=== PATIENT | male | born 1940 | race Caucasian/White ===

== ENCOUNTER 2018-09-14 09:22 | Inpatient (IN) | payer MEDICARE, OTHER ==
[2018-09-14] MEDS ORDERED: Bisacodyl SUPP* 10 MG SUPP PR PRN (11:01)
[2018-09-14] MEDS ORDERED: Magnesium Hydroxide LIQ* 30 ML UDC PO PRN (11:01)
[2018-09-14] MEDS ORDERED: Al Hydrox/Mg Hydrox/Simet LIQ* 30 ML UDC PO PRN (11:01)
[2018-09-14] MEDS ORDERED: Torsemide TAB* 20 MG PO PRN (11:15)
[2018-09-14] MEDS ORDERED: oxyCODONE/Acetamin 5/325 MG* TAB PO PRN (11:17)
[2018-09-14] MEDS: Polyethylene Glycol 3350* 17 GM PACKET PO SCH (12:17)
--- NOTE | 2018-09-14 13:03 | HP ---
CC: Dr. Hooper; Dr. Padilla; Dr. Gastelum REHABILITATION ADMISSION: DATE OF ADMISSION: 09/14/18. PRIMARY CARE PROVIDER: Dr. Hooper. ORTHOPEDIC SURGEON: Dr. Padilla. DIRECT SUPPORT WORKER: Dr. Gastelum. REASON FOR ADMISSION: Right ankle fracture. HISTORY OF PRESENT ILLNESS: This is a 77-year-old man with morbid obesity, who was admitted on 09/11/18 after fracturing his right ankle. He was brushing snow off his walkway to his truck as well as off his truck. He slipped and got his foot stuck between the runner board of his truck and wheel and fell in the opposite direction. He was brought in by ambulance to [facility]. CT revealed a lateral subluxation with posterior malleolus avulsion. X-ray showed an oblique fracture in the posterior fibula. He was seen by Dr. Crenshaw in the emergency room where the subluxation was reduced. Because of significant cardiac history of atrial fibrillation, pacemaker, cardiomyopathy and ventricular ectopy, he was admitted for a cardiology consultation in preparation for operative intervention. Cardiology recommended increasing his metoprolol to 50 mg b.i.d. He had pending an electrophysiology consult with Dr. Caldera at [facility] on 09/17/18,but that has been deferred in light of this injury. His Xarelto was stopped and he was put on a heparin drip in preparation for surgery. He was taken to the OR by Dr. Padilla on 09/12/18 for right distal tibia-fibula syndesmosis ORIF with closed treatment of right proximal fibula fracture. He is in a cast and is nonweightbearing for at least 8 weeks with the plan to follow up with Dr. Padilla in 2 weeks. Of note, the cardiology nurse practitioner decreased his metoprolol XL to 37.5 mg qam yesterday for unclear reasons. His blood pressure appears to remain stable. There are some documented bradycardia episodes, but he has a pacemaker in place. Prior to admission, he was independent with mobility and ADLs without using any assistive devices. With Physical Therapy, he has required contact guard assistance with bed mobility, transferring, and ambulation up to 2 feet with 2 assist. With Occupational Therapy, he required 2 maximum amount of assistance for lower dressing and 2 total assistance for toileting. PAST MEDICAL HISTORY: 1. Atrial fibrillation and flutter. 2. Tachybrady syndrome with pacemaker. 3. Ventricular ectopy, pending electrophysiology consult in [place] 4. Obstructive sleep apnea with CPAP that he does not use. 5. Cardiomyopathy and CHF with ejection fraction of 40% to 45%. 6. Tremor. 7. Depression. 8. Anxiety. 9. Hard of hearing with cochlear implants. 10. Abdominal cyst, status post multiple surgeries. 11. Benign prostatic hypertrophy. 12. Transthoracic ascending aortic aneurysm. 13. Hypertension. 14. Diabetes mellitus, diet controlled. 15. Obesity. MEDICATIONS: Currently: 1. Toprol-XL 37.5 mg daily. 2. Xarelto 20 mg daily. 3. Lipitor 5 mg q.h.s. 4. Citalopram 20 mg daily. 5. Clonazepam 1.5 mg q.a.m. and 1 mg q.p.m. 6. Finasteride 5 mg q.a.m. 7. Lisinopril 5 mg q.a.m. 8. Tamsulosin 0.4 mg q.a.m. 9. Torsemide 10 mg daily p.r.n. 10. Tylenol p.r.n. 11. Colace 100 mg t.i.d. p.r.n. 12. Percocet p.r.n., which he has not used. ALLERGIES: No known drug allergies. FAMILY HISTORY: Significant for father with asthma. SOCIAL HISTORY: He lives with his , Rosaura Saunders in [place]. Rosaura Saunders is his healthcare proxy, her numbers are [phone] and her cell is [phone]. He is a retired painter hand. He has a [id number] history of smoking and quit several years ago. No alcohol. Their home is a trailer. There is one level and 4 steps to enter. His is able to offer him some assistance with emptying a commode, wiping him, and assisting with sponge bathes. She cannot be physical assistance however to lift him. REVIEW OF SYSTEMS: See history of present illness and past medical history. He has been constipated since admission. The remainder of a 13-system review was completed. No other significant findings. PHYSICAL EXAMINATION GENERAL: Well developed, well nourished, overweight, appearing stated age. Mental status: No acute distress. Alert and oriented x3. VITAL SIGNS: Temperature 97.8, heart rate 76, respirations 16, oxygenation saturation 100% on room air, blood pressure 118/64. HEENT: Normocephalic, atraumatic. Oropharynx clear with upper and lower dentures. His lower denture is missing one of the front middle teeth. LUNGS: Clear to auscultation bilaterally. HEART: Irregularly irregular. ABDOMEN: Active bowel sounds. Soft, nontender, nondistended. EXTREMITIES: His right lower extremity is in a cast. There is no clubbing, cyanosis, or edema of the left lower extremity. No edema of the right toes or discoloration. He has 2+ peripheral pulses of the left leg. NEUROLOGIC: Cranial nerves II through XII are intact. Upper and lower extremity motor 5/5 bilaterally with normal sensation with limited testing of the right ankle due to his cast. MUSCULOSKELETAL: He has functional range of motion of all of his major joints with once again limited testing of the right ankle. DIAGNOSTIC STUDIES/LAB DATA: On 09/12/18, white blood cells 7.2, hemoglobin 13.4, hematocrit 40, platelet counts 139. Sodium 137, potassium 4.5, chloride 103, carbon dioxide 29, BUN 23, creatinine 0.84, glucose ranged from 85 to 118. IMPRESSION: A 77-year-old man who is status post right ankle fracture ORIF, who is nonweightbearing for at least 8 weeks. He will be admitted to [facility], so he can return to living with his with some assistance. PLAN: 1. Right ankle fracture. Continue nonweightbearing in his current cast. He is to follow up with Dr. Padilla in 2 weeks. I will order Tylenol for pain control and 1 Percocet as needed for pain control, although he has not used it to date. 2. Cardiac arrhythmia with history of paroxysmal atrial fibrillation, ventral ectopy, tachybrady syndrome with pacemaker. I spoke to Dr. Jonas about the dosing changes in metoprolol. He was familiar with this patient. He recommended keeping him on metoprolol 50 mg b.i.d. since he has the pacemaker in place to prevent bradycardia as long as it is tolerated by his blood pressure. He will need to have the electrophysiology consultation rescheduled which his has already initiated. 3. Hypertension. Continue with metoprolol and lisinopril. 4. DVT prophylaxis. He is already on Xarelto for anticoagulation for his cardiac arrhythmia. 5. Diabetes mellitus diet-controlled. Consistent carbohydrate diet. I have not ordered any routine fingersticks or sliding scale insulin as he appears to have stayed below typical ranges where one would receive insulin during his acute stay. 6. Cardiomyopathy and CHF. Torsemide as needed. 7. Constipation. Bowel meds will be ordered as well as MiraLAX. 8. Impaired mobility. He will be seen by Physical Therapy for bed mobility, transfer training, gait training, and stair training using a rolling walker and maintaining his nonweightbearing status. He is likely to need a ramp to get into his home. 9. Impaired self-care. He will be seen by Occupational Therapy for ADL training and equipment evaluation. His is likely to require family training prior to discharge. 10. Advance directives. He is a full code. His Rosaura Saunders is his healthcare proxy if he cannot make decisions for himself. Her numbers are [phone]. ESTIMATED LENGTH OF STAY: Two weeks. He will be discussed in the interdisciplinary plan of care meeting. [id number]/CPS #: [id number] CLAUDIO
[2018-09-14] MEDS: Rivaroxaban TAB(*) 20 MG TAB PO SCH (16:20)
[2018-09-14] MEDS: Atorvastatin* 10 MG TAB PO SCH (17:57)
[2018-09-14] MEDS: Senna TAB PO SCH (21:30)
[2018-09-14] MEDS: clonazePAM TAB(*) 1 MG PO SCH (21:30)
[2018-09-14] MEDS: Docusate CAP* 100 MG PO SCH (21:30)
[2018-09-14] MEDS: Metoprolol Succinate XL TAB* 25 MG PO SCH (21:30)
[2018-09-15] MEDS: Acetaminophen TAB* 325 MG PO PRN (04:42)
[2018-09-15 05:13] LABS: ABS Basophils 0.1 10^3/ul (0-0.2); ABS Eosinophils 0.1 10^3/ul (0-0.6); ABS Lymphocytes 1.8 10^3/ul (1.0-4.8); ABS Monocytes 0.9 10^3/ul (0-0.8); ABS Neutrophils 4.3 10^3/ul (1.5-7.7); ABS Nucleated RBC 0 10^3/ul; Eosinophil % 1.4 %; Hematocrit 39 % (42-52); Hemoglobin 13.3 g/dl (14.0-18.0); Lymphocyte % 24.8 %; Mean Corpuscular HGB Conc 34 g/dl (31-36); Mean Corpuscular Hemoglobin 33 pg (27-31); Mean Corpuscular Volume 98 fL (80-94); Nucleated Red Blood Cells % 0; Platelet Count 165 10^3/ul (150-450); Red Blood Count 4.04 10^6/ul (4.00-5.40); Red Cell Distribution Width 13 % (10.5-15); White Blood Count 7.1 10^3/ul (3.5-10.8)
[2018-09-15 05:30] LABS: Albumin 3.2 g/dL (3.2-5.2); Albumin/Globulin Ratio 1.2 (1-3); BUN/Creatinine Ratio 23.2 (8-20); Calcium 9.2 mg/dL (8.6-10.3); EGFR African American 110.8 (>60); EGFR Non-African American 91.6 (>60); Globulin 2.6 g/dL (2-4); Potassium 4.8 mmol/L (3.5-5.0); Total Bilirubin 0.7 mg/dL (0.2-1.0); Total Protein 5.8 g/dL (6.4-8.9)
--- NOTE | 2018-09-15 08:23 | PN ---
Progress Note Date of Service: 09/15/18 Note: DANIEL MOHAN was visited. Nursing and therapy notes read and reviewed. No BM yet. No chest pain, shortness of breath or abdominal pain. He did use some tylenol last night for discomfort which helped. Current Medications: Active Medications Generic Name Dose Route Start Last Admin Trade Name Freq PRN Reason Stop Dose Admin Acetaminophen 650 mg 09/14/18 11:01 09/15/18 04:42 Tylenol Tab* PO 650 mg Q4H PRN Administration FEVER > 101 Al Hydrox/Mg Hydrox/Simethicone 30 ml 09/14/18 11:01 Maalox Plus* PO Q6H PRN INDIGESTION Atorvastatin Calcium 5 mg 09/14/18 18:00 09/14/18 17:57 Lipitor* PO 5 mg 1800 TIMMY Administration Bisacodyl 10 mg 09/14/18 11:01 Dulcolax Supp* [place] DAILY PRN CONSTIPATION Citalopram Hydrobromide 20 mg 09/15/18 09:00 Celexa Tab* PO DAILY TIMMY Clonazepam 0.5 mg 09/15/18 09:00 Klonopin Tab(*) PO 0900 TIMMY Clonazepam 1 mg 09/14/18 21:00 09/14/18 21:30 Klonopin Tab(*) PO 1 mg BID TIMMY Administration Docusate Sodium 100 mg 09/14/18 21:00 09/14/18 21:30 Colace Cap* PO 100 mg BID TIMMY Administration Finasteride 5 mg 09/15/18 09:00 Proscar Tab* PO DAILY TIMMY Lisinopril 5 mg 09/15/18 09:00 Prinivil Tab* PO DAILY TIMMY Magnesium Hydroxide 30 ml 09/14/18 11:01 Milk Of Magnesia Liq* PO Q6H PRN CONSTIPATION Metoprolol Succinate 50 mg 09/14/18 21:00 09/14/18 21:30 Toprol Xl Tab* PO 50 mg BID TIMMY Administration Oxycodone/Acetaminophen 1 tab 09/14/18 11:17 Percocet 5/325 Tab* PO Q4H PRN Pain not relieved by tylenol Polyethylene Glycol/Electrolytes 17 gm 09/14/18 12:00 09/14/18 12:17 Miralax* PO 17 gm DAILY TIMMY Administration Rivaroxaban 20 mg 09/14/18 16:00 09/14/18 16:20 Xarelto(*) PO 20 mg 1600 TIMMY Administration Senna 2 tab 09/14/18 21:00 09/14/18 21:30 Senokot Tab* PO 2 tab BEDTIME TIMMY Administration Tamsulosin HCl 0.4 mg 09/15/18 09:00 Flomax Cap* PO DAILY TIMMY Torsemide 10 mg 09/14/18 11:15 Demadex* PO DAILY PRN edema Vital Signs: Vital Signs Temp Pulse Resp BP Pulse Ox 99.3 F 78 18 111/58 97 09/15/18 05:03 09/15/18 05:03 09/15/18 05:03 09/15/18 05:03 09/15/18 05:03 Lab Results: Laboratory Results - last 24 hr 09/15/18 09/15/18 04:56 04:56 WBC 7.1 RBC 4.04 Hgb 13.3 L Hct 39 L MCV 98 H MCH 33 H MCHC 34 RDW 13 Plt Count 165 MPV 8.0 Neut % (Auto) 60.8 Lymph % (Auto) 24.8 Cedar % (Auto) 12.3 Eos % (Auto) 1.4 Baso % (Auto) 0.7 Absolute Neuts (auto) 4.3 Absolute Lymphs (auto) 1.8 Absolute Monos (auto) 0.9 H Absolute Eos (auto) 0.1 Absolute Basos (auto) 0.1 Absolute Nucleated RBC 0 Nucleated RBC % 0 Sodium 139 Potassium 4.8 Chloride 103 Carbon Dioxide 32 Anion Gap 4 BUN 19 Creatinine 0.82 Est GFR ( Amer) 110.8 Est GFR (Non-Af Amer) 91.6 BUN/Creatinine Ratio 23.2 H Glucose 130 H Calcium 9.2 Total Bilirubin 0.70 AST 17 ALT 8 Alkaline Phosphatase 47 Total Protein 5.8 L Albumin 3.2 Globulin 2.6 Albumin/Globulin Ratio 1.2 Exam: GEN: no acute distress. alert and appropriate LUNGS: clear to auscultation bilaterally. CV: regular rate and rhythm (has h/o P.Afib) ABD: + bowel sounds, soft, non-tender, non-distended EXT: right leg casted. <2sec capillary refill. Left leg no edema and 2+ pedal pulses. NEURO: LE motor 5/5 BLE with limited testing of right ankle due to cast. Normal sensation in BLE. Assessment/Plan: 77yo man s/p ORIF of right ankle fracture #Right ankle fracture: s/p ORIF and casted. f/u Dr. Padilla 2 weeks post-op ( around 09/26). NWB RLE. PT/OT. #Cardiac: P.Afib/flutter, tachy/trisha syndrome s/p pacemaker, ventricular ectopy , cardiomyopathy/CHF. Continue metoprolol 50mg bid and Xarelto. Torsemide prn. Patient will reschedule cardiac EP consult in [place] after recovered from ankle. f/u Dr. Gastelum. #Hypertension: metoprolol and lisinopril. #DVT ppx: Xarelto #Diabetes mellitus diet controlled: consistent carbohydrate diet. No FS or coverage. f/u with PCP. #Constipation: bowel meds. Miralax today. #Advanced directives: full code. is HCP. #Estimated LOS: IPOC on Monday. 09/15/18 08:18
[2018-09-15] MEDS ORDERED: Metoprolol Succinate XL TAB* 25 MG PO SCH (09:00)
[2018-09-15] MEDS: Polyethylene Glycol 3350* 17 GM PACKET PO SCH (09:52)
[2018-09-15] MEDS: Tamsulosin CAP* 0.4 MG PO SCH (09:53)
[2018-09-15] MEDS: Lisinopril TAB* 5 MG PO SCH (09:53)
[2018-09-15] MEDS: clonazePAM TAB(*) 0.5 MG PO SCH (09:54)
[2018-09-15] MEDS: Docusate CAP* 100 MG PO SCH ×2 (09:54→20:11)
[2018-09-15] MEDS: clonazePAM TAB(*) 1 MG PO SCH ×2 (09:54→20:09)
[2018-09-15] MEDS: Metoprolol Succinate XL TAB* 25 MG PO SCH ×2 (09:55→20:09)
[2018-09-15] MEDS: Citalopram TAB* 20 MG PO SCH (09:55)
[2018-09-15] MEDS: Finasteride TAB* 5 MG PO SCH (09:56)
[2018-09-15] MEDS: Rivaroxaban TAB(*) 20 MG TAB PO SCH (16:24)
[2018-09-15] MEDS: Atorvastatin* 10 MG TAB PO SCH (17:30)
[2018-09-15] MEDS: Senna TAB PO SCH (20:11)
[2018-09-16] MEDS: Polyethylene Glycol 3350* 17 GM PACKET PO SCH (08:39)
[2018-09-16] MEDS: clonazePAM TAB(*) 1 MG PO SCH ×2 (08:40→20:41)
[2018-09-16] MEDS: Docusate CAP* 100 MG PO SCH ×2 (08:40→20:45)
[2018-09-16] MEDS: Citalopram TAB* 20 MG PO SCH (08:41)
[2018-09-16] MEDS: Tamsulosin CAP* 0.4 MG PO SCH (08:41)
[2018-09-16] MEDS: clonazePAM TAB(*) 0.5 MG PO SCH (08:41)
[2018-09-16] MEDS: Lisinopril TAB* 5 MG PO SCH (08:41)
[2018-09-16] MEDS: Metoprolol Succinate XL TAB* 25 MG PO SCH ×2 (08:42→20:41)
[2018-09-16] MEDS: Finasteride TAB* 5 MG PO SCH (08:43)
[2018-09-16] MEDS ORDERED: Polyethylene Glycol 3350* 17 GM PACKET PO PRN (09:21)
--- NOTE | 2018-09-16 09:21 | PN ---
Progress Note Date of Service: 09/16/18 Note: DANIEL MOHAN was visited. Nursing and therapy notes read and reviewed. No chest pain, shortness of breath or abdominal pain. Using tylenol for pain prn, but not needing much. Current Medications: Active Medications Generic Name Dose Route Start Last Admin Trade Name Freq PRN Reason Stop Dose Admin Acetaminophen 650 mg 09/14/18 11:01 09/15/18 04:42 Tylenol Tab* PO 650 mg Q4H PRN Administration FEVER > 101 Al Hydrox/Mg Hydrox/Simethicone 30 ml 09/14/18 11:01 Maalox Plus* PO Q6H PRN INDIGESTION Atorvastatin Calcium 5 mg 09/14/18 18:00 09/15/18 17:30 Lipitor* PO 5 mg 1800 TIMMY Administration Bisacodyl 10 mg 09/14/18 11:01 Dulcolax Supp* [place] DAILY PRN CONSTIPATION Citalopram Hydrobromide 20 mg 09/15/18 09:00 09/16/18 08:41 Celexa Tab* PO 20 mg DAILY TIMMY Administration Clonazepam 0.5 mg 09/15/18 09:00 09/16/18 08:41 Klonopin Tab(*) PO 0.5 mg 0900 TIMMY Administration Clonazepam 1 mg 09/14/18 21:00 09/16/18 08:40 Klonopin Tab(*) PO 1 mg BID TIMMY Administration Docusate Sodium 100 mg 09/14/18 21:00 09/16/18 08:40 Colace Cap* PO 100 mg BID TIMMY Administration Finasteride 5 mg 09/15/18 09:00 09/16/18 08:43 Proscar Tab* PO 5 mg DAILY TIMMY Administration Lisinopril 5 mg 09/15/18 09:00 09/16/18 08:41 Prinivil Tab* PO 5 mg DAILY TIMMY Administration Magnesium Hydroxide 30 ml 09/14/18 11:01 Milk Of Magnesia Liq* PO Q6H PRN CONSTIPATION Metoprolol Succinate 50 mg 09/14/18 21:00 09/16/18 08:42 Toprol Xl Tab* PO 50 mg BID TIMMY Administration Oxycodone/Acetaminophen 1 tab 09/14/18 11:17 Percocet 5/325 Tab* PO Q4H PRN Pain not relieved by tylenol Polyethylene Glycol/Electrolytes 17 gm 09/14/18 12:00 09/16/18 08:39 Miralax* PO Not Given DAILY TIMMY Rivaroxaban 20 mg 09/14/18 16:00 09/15/18 16:24 Xarelto(*) PO 20 mg 1600 TIMMY Administration Senna 2 tab 09/14/18 21:00 09/15/18 20:11 Senokot Tab* PO Not Given BEDTIME TIMMY Tamsulosin HCl 0.4 mg 09/15/18 09:00 09/16/18 08:41 Flomax Cap* PO 0.4 mg DAILY TIMMY Administration Torsemide 10 mg 09/14/18 11:15 Demadex* PO DAILY PRN edema Vital Signs: Vital Signs Temp Pulse Resp BP Pulse Ox 99.0 F 76 18 125/65 96 09/16/18 06:15 09/16/18 06:15 09/16/18 08:41 09/16/18 06:15 09/16/18 06:15 Exam: GEN: no acute distress. alert and appropriate LUNGS: clear to auscultation bilaterally. CV: irregular rate and rhythm (has h/o P.Afib and ventricular ectopy) ABD: + bowel sounds, soft, non-tender, non-distended EXT: right leg casted. <2sec capillary refill. Left leg no edema and 2+ pedal pulses. NEURO: LE motor 5/5 BLE with limited testing of right ankle due to cast. Normal sensation in BLE. Assessment/Plan: 77yo man s/p ORIF of right ankle fracture #Right ankle fracture: s/p ORIF and casted. f/u Dr. Padilla 2 weeks post-op ( around 09/26). NWB RLE. PT/OT. #Cardiac: P.Afib/flutter, tachy/trisha syndrome s/p pacemaker, ventricular ectopy , cardiomyopathy/CHF. Continue metoprolol 50mg bid and Xarelto. Torsemide prn. Patient will reschedule cardiac EP consult in [place] after recovered from ankle. f/u Dr. Gastelum. #Hypertension: metoprolol and lisinopril. #DVT ppx: Xarelto #Diabetes mellitus diet controlled: consistent carbohydrate diet. No FS or coverage. f/u with PCP. #Constipation: bowel meds. Miralax prn. #Advanced directives: full code. is HCP. #Estimated LOS: IPOC on Monday. 09/16/18 09:18
[2018-09-16] MEDS: Rivaroxaban TAB(*) 20 MG TAB PO SCH (16:05)
[2018-09-16] MEDS: Atorvastatin* 10 MG TAB PO SCH (18:24)
[2018-09-16] MEDS: Acetaminophen TAB* 325 MG PO PRN (18:26)
[2018-09-16] MEDS: Senna TAB PO SCH (20:46)
[2018-09-17] MEDS: clonazePAM TAB(*) 0.5 MG PO SCH (09:22)
[2018-09-17] MEDS: clonazePAM TAB(*) 1 MG PO SCH ×2 (09:22→21:11)
[2018-09-17] MEDS: Metoprolol Succinate XL TAB* 25 MG PO SCH ×2 (09:22→21:12)
[2018-09-17] MEDS: Lisinopril TAB* 5 MG PO SCH (09:22)
[2018-09-17] MEDS: Tamsulosin CAP* 0.4 MG PO SCH (09:22)
[2018-09-17] MEDS: Docusate CAP* 100 MG PO SCH ×2 (09:22→21:12)
[2018-09-17] MEDS: Finasteride TAB* 5 MG PO SCH (09:26)
[2018-09-17] MEDS: Citalopram TAB* 20 MG PO SCH (09:27)
--- NOTE | 2018-09-17 12:43 | PMRUTEAM ---
PMRU: Team Meeting Current Status: Nursing: Current Status Skin Deviations [Right Ankle] Incision Skin Deviation Description [ cast in place Right Ankle] Physical Therapy: Current Status Bed Mobility Assistance Independent Transfer Mobility Assistance Min Assist Transfer/Bed Mobility Rolling Walker Recommended Devices Ambulation Assistance Min Assist,2 or More Person Assist Ambulation Assistive Devices Rolling Walker Number of Feet Patient 25 Ambulated Stairs Assistance Mod Assist Stairs Recommended Devices Two Rails Number of Stairs 4 Manual Wheelchair Control/ Bilateral UE's Technique Wheelchair Propulsion Ability Standby Assistance Wheelchair Distance (ft) 2x150 Objective Comments pt able to self propel w/c over even surfaces with cuing instruction for how to turn w/c and apply brakes and leg rests. Occupational Therapy: Current Status Upper Body Dressing Min Assist Lower Body Dressing Max Asst Bathing Min Assist Toileting Mod Assist,2 Person Assist Toilet Transfer Min Assist,2 Person Assist Eating Independent Rec Therapy: Current Status Summary of Assessment and Pt. was lounging in his recliner throughout Clinical Impression assessment. Pt. was open to conversation - responsive, appropriate, talkative. Pt.'s was visiting and was active in discussion about leisure. Pt. reports he enjoys his life. Treatment Goals Pt. will engage in leisure while on the unit. Treatment Plan Provide RT services and encourage participation. Social Work: Current Status Discharge Plan return home with home care svs and family support Potential for Family Training pt's is involved and attentive Anticipated Discharge Home Destination Discharge With home care svs and family support Goals: Physical Therapy: Updated Goals Transfer/Bed Mobility Rolling Walker Recommended Devices Occupational Therapy: Initial Goals Goals to be Completed in (Days 14-21 ) Upper Body Bathing Routine Supervision/Set Up Lower Body Bathing Routine Minimal Contact Assist Upper Body Dressing Routine Supervision/Set Up Lower Body Dressing Routine Minimal Contact Assist Toilet Hygeine and Clothing Minimal Contact Assist Management Routine Toilet Transfer Routine Supervision/Set Up Functional Transfers for ADL Supervision/Set Up Grooming Routine Supervision/Set Up Feeding Routine Independent Social Work: Goals Discharge Plan return home with home care svs and family support Potential for Family Training pt's is involved and attentive Anticipated Discharge Home Destination Discharge With home care svs and family support Care Plan: Care Plan ADL's - Improve/Maintain Start: 09/15/18 09:40 Freq: DAILY Status: Active Target: Protocol: Activity Type Activity Date Activity User E-Sign Co-Sign Detail Recorded Client Recorded Date Recorded By Document 09/15/18 09:40 [id number] 09/15/18 09:41 [id number] 09/15/18 09:40 PMRU Outcome: ADL's/ADL Transfers Orders/Interventions Occupational Therapy Evaluation & Treatment Communication Tool in Patient Room Patient to receive OT 5x/wk for 60-120 Therex min/day Self Care Management Group Therapy UE/LE ADL's with Assist Yes: min A LB ADLs, set-up UB ADLs ADL Transfers with Assist Yes: S Toileting: Transfers,Clothing Management Yes: min A ,Hygeine w/Assist Light Kitchen/Laundry w/Assist No Progression Toward Outcome/Goals Progressing Outcome/Goals Met Pt making steady gains with standing endurance, standing balance and transfers. 1A with therapy but would recommend 2A with nsg. RN updated on progress. Cardiovascular- Improve/Maintain Start: 09/15/18 12:32 Freq: QSHIFT Status: Active Target: Protocol: Activity Type Activity Date Activity User E-Sign Co-Sign Detail Recorded Client Recorded Date Recorded By Document 09/17/18 11:59 [id number] 09/17/18 11:59 [id number] 09/17/18 11:59 PMRU Outcome: Cardiovascular Vital Signs q Shift for 48hrs Then BID Yes Current Cardiovascular Outcome/Goal Maintain/ Achieve Baseline HR, BP , Perfusion Progression Toward Outcome/Goal Progressing DVT Prophylaxis- Improve/Maintain Start: 09/15/18 12:32 Freq: QSHIFT Status: Active Target: Protocol: Activity Type Activity Date Activity User E-Sign Co-Sign Detail Recorded Client Recorded Date Recorded By Document 09/17/18 11:59 [id number] 09/17/18 11:59 [id number] 09/17/18 11:59 PMRU Outcome: DVT Prophylaxis Outcome/Goals Remains Free of DVT Progression Toward Outcome/Goals Progressing Discharge Planning - Improve/Maintain Start: 09/15/18 12:32 Freq: DAILY Status: Active Target: Protocol: Activity Type Activity Date Activity User E-Sign Co-Sign Detail Recorded Client Recorded Date Recorded By Document 09/16/18 22:15 [id number] 09/16/18 22:15 [id number] 09/16/18 22:15 PMRU Outcome: Discharge Planning Update Patient Family Yes Outcome/Goals Demonstrates Understanding of Discharge Plan Homecare Referral - See Comment Progression Toward Outcome/Goals Progressing Medication Administration Start: 09/15/18 12:32 Freq: QSHIFT Status: Active Target: Protocol: Activity Type Activity Date Activity User E-Sign Co-Sign Detail Recorded Client Recorded Date Recorded By Document 09/17/18 11:59 [id number] 09/17/18 11:59 [id number] 09/17/18 11:59 PMRU Outcome: Medication Administration Assess Patient Knowledge/Teach Med Yes Education for all Meds Outcome/Goals Patient Independent with Medication Administration at Home Progression Towards Outcome/Goals Progressing Is Patient Going Home on Lovenox? No Mobility- Improve/Maintain Start: 09/14/18 14:37 Freq: DAILY Status: Active Target: Protocol: Activity Type Activity Date Activity User E-Sign Co-Sign Detail Recorded Client Recorded Date Recorded By Document 09/14/18 14:37 [id number] 09/14/18 14:38 [id number] 09/14/18 14:37 PMRU Outcome: Mobility Physical Therapy Evaluation and Yes Treatment Activity OOB with Assistance Yes NWB Yes: RLE Device Yes Assistance Yes Patient to be seen 5x/wk for 60-120 min/ Therex day for: Mobility Training Gait Training W/C Mobility Balance Outcome/Goals Maintain/ Achieve Baseline Mobility Status Improve Mobility Status Demonstrates Proper Use of Assistive Devices Free from Complications of Immobility Bed Mobility Yes: Independent Transfers Yes: Modified independent with RW Gait x ft Yes: Modified independent 10' with RW W/C Mobility x ft Yes: Independent 150 ' BUE With HEP Yes: Independent Goal Comment Maintain NWB RLE Safety- Improve/Maintain Start: 09/15/18 12:32 Freq: QSHIFT Status: Active Target: Protocol: Activity Type Activity Date Activity User E-Sign Co-Sign Detail Recorded Client Recorded Date Recorded By Document 09/17/18 11:59 [id number] 09/17/18 11:59 [id number] 09/17/18 11:59 PMRU Outcome: Safety Outcome/Goals Remain Free of Injury or Harm Cooperates with Safety Measures for Least Restrictive Environment Prevent Falls/ Injury Progression Toward Outcome/Goals Progressing Skin- Improve/Maintain Start: 09/15/18 12:32 Freq: QSHIFT Status: Active Target: Protocol: Activity Type Activity Date Activity User E-Sign Co-Sign Detail Recorded Client Recorded Date Recorded By Document 09/17/18 11:59 [id number] 09/17/18 11:59 [id number] 09/17/18 11:59 PMRU Outcome: Skin Skin Risk Level Medium Outcome/Goals Maintain/ Improve Skin Intergrity Free from Decubitus Progression Toward Outcome/Goals Progressing Medicine Note: Length of Stay: 7 days Anticipated Discharge Destination: Home Tentative Discharge Date: 09/24/18 Discharged to: home
[2018-09-17] MEDS: Acetaminophen TAB* 325 MG PO PRN (14:09)
[2018-09-17] MEDS: Rivaroxaban TAB(*) 20 MG TAB PO SCH (16:36)
--- NOTE | 2018-09-17 17:56 | PN ---
Progress Note Date of Service: 09/17/18 Note: DANIEL MOHAN was visited. Therapy notes read and reviewed. Patient was discussed in interdisciplinary plan of care rounds. He is doing fairly well. Requires trapeze here, plans to sleep in lift chair at home. Current Medications: Active Medications Generic Name Dose Route Start Last Admin Trade Name Freq PRN Reason Stop Dose Admin Acetaminophen 650 mg 09/14/18 11:01 09/17/18 14:09 Tylenol Tab* PO 650 mg Q4H PRN Administration FEVER > 101 Al Hydrox/Mg Hydrox/Simethicone 30 ml 09/14/18 11:01 Maalox Plus* PO Q6H PRN INDIGESTION Atorvastatin Calcium 5 mg 09/14/18 18:00 09/16/18 18:24 Lipitor* PO 5 mg 1800 TIMMY Administration Bisacodyl 10 mg 09/14/18 11:01 Dulcolax Supp* [place] DAILY PRN CONSTIPATION Citalopram Hydrobromide 20 mg 09/15/18 09:00 09/17/18 09:27 Celexa Tab* PO 20 mg DAILY TIMMY Administration Clonazepam 0.5 mg 09/15/18 09:00 09/17/18 09:22 Klonopin Tab(*) PO 0.5 mg 0900 TIMMY Administration Clonazepam 1 mg 09/14/18 21:00 09/17/18 09:22 Klonopin Tab(*) PO 1 mg BID TIMMY Administration Docusate Sodium 100 mg 09/14/18 21:00 09/17/18 09:22 Colace Cap* PO 100 mg BID TIMMY Administration Finasteride 5 mg 09/15/18 09:00 09/17/18 09:26 Proscar Tab* PO 5 mg DAILY TIMMY Administration Lisinopril 5 mg 09/15/18 09:00 09/17/18 09:22 Prinivil Tab* PO 5 mg DAILY TIMMY Administration Magnesium Hydroxide 30 ml 09/14/18 11:01 Milk Of Magnesia Liq* PO Q6H PRN CONSTIPATION Metoprolol Succinate 50 mg 09/14/18 21:00 09/17/18 09:22 Toprol Xl Tab* PO 50 mg BID TIMMY Administration Oxycodone/Acetaminophen 1 tab 09/14/18 11:17 Percocet 5/325 Tab* PO Q4H PRN Pain not relieved by tylenol Polyethylene Glycol/Electrolytes 17 gm 09/16/18 09:21 Miralax* PO DAILY PRN CONSTIPATION Rivaroxaban 20 mg 09/14/18 16:00 09/17/18 16:36 Xarelto(*) PO 20 mg 1600 TIMMY Administration Senna 2 tab 09/14/18 21:00 09/16/18 20:46 Senokot Tab* PO Not Given BEDTIME TIMMY Tamsulosin HCl 0.4 mg 09/15/18 09:00 09/17/18 09:22 Flomax Cap* PO 0.4 mg DAILY TIMMY Administration Torsemide 10 mg 09/14/18 11:15 Demadex* PO DAILY PRN edema Vital Signs: Vital Signs Temp Pulse Resp BP Pulse Ox 98.0 F 78 20 112/65 97 09/17/18 16:08 09/17/18 16:08 09/17/18 16:42 09/17/18 16:08 09/17/18 16:42 Exam: GENERAL: no acute distress. alert and appropriate LUNGS: clear to auscultation bilaterally. HEART: irregular rate and rhythm (has h/o P.Afib and ventricular ectopy) ABDOMEN: + bowel sounds, soft, non-tender, non-distended EXT: right leg casted. Left leg no edema and 2+ pedal pulses. NEURO: LE motor 5/5 BLE with limited testing of right ankle due to cast. Normal sensation in BLE. Assessment/Plan: 77yo man s/p ORIF of right ankle fracture 1. Right ankle fracture: s/p ORIF and casted. f/u Dr. Padilla 2 weeks post-op ( around 09/26). NWB RLE. PT/OT. 2. P.Afib/flutter, tachy/trisha syndrome s/p pacemaker: Metoprolol 50mg bid and Xarelto. Will need cardiac EP consult in [place] after recovered from ankle. 3. CHF: Demadex PRN 4. Hypertension: metoprolol and lisinopril. 5. DVT prophylaxis: Xarelto 6. Diabetes mellitus diet controlled: consistent carbohydrate diet. No FS or coverage. f/u with PCP. 7. Constipation: bowel meds. Miralax prn. 8. Advanced directives: full code. is HCP. 09/17/18 17:57
[2018-09-17] MEDS: Atorvastatin* 10 MG TAB PO SCH (18:27)
[2018-09-17] MEDS: Senna TAB PO SCH (21:12)
[2018-09-18] MEDS: clonazePAM TAB(*) 1 MG PO SCH ×2 (08:06→20:05)
[2018-09-18] MEDS: clonazePAM TAB(*) 0.5 MG PO SCH (08:06)
[2018-09-18] MEDS: Citalopram TAB* 20 MG PO SCH (08:06)
[2018-09-18] MEDS: Docusate CAP* 100 MG PO SCH ×2 (08:07→20:04)
[2018-09-18] MEDS: Tamsulosin CAP* 0.4 MG PO SCH (08:07)
[2018-09-18] MEDS: Metoprolol Succinate XL TAB* 25 MG PO SCH ×2 (08:07→20:05)
[2018-09-18] MEDS: Lisinopril TAB* 5 MG PO SCH (08:07)
[2018-09-18] MEDS: Finasteride TAB* 5 MG PO SCH (08:07)
--- NOTE | 2018-09-18 12:39 | PMRUTEAM ---
PMRU: Team Meeting Current Status: Nursing: Current Status Skin Deviations [Right Ankle] Incision Skin Deviation Description [ soft cast/splint/CARYN wrap in place Right Ankle] Bladder Current Status Continent - uses urinal at night, pivoting to commode PRN Bowel Current Status Continent - uses urinal at night, pivoting to commode PRN Nutrition Current Status Eating at least 75% of most meals Medication Current Status Declined pain medication intervention Physical Therapy: Current Status Bed Mobility Assistance Supervision Transfer Mobility Assistance Supervision Transfer/Bed Mobility Rolling Walker Recommended Devices Ambulation Assistance Contact Guard Assist Ambulation Assistive Devices Rolling Walker Number of Feet Patient 25' Ambulated Stairs Assistance Not Tested Stairs Recommended Devices Two Rails Number of Stairs 4 Curb Not Tested Manual Wheelchair Control/ Bilateral UE's Technique Wheelchair Propulsion Ability Standby Assistance Wheelchair Distance (ft) 150' Objective Comments pt able to self propel w/c over even surfaces with cuing instruction for how to turn w/c and apply brakes and leg rests. Occupational Therapy: Current Status Upper Body Dressing Supervision Lower Body Dressing Mod Assist,Max Asst Bathing Min Assist Toileting Mod Assist Toilet Transfer Contact Guard Assist,Min Assist Shower Transfer Contact Guard Assist,Min Assist Eating Ind with Adaptive Equip Rec Therapy: Current Status Summary of Assessment and RT assessment complete. Patient has been provided Clinical Impression with activities in his room. Treatment Goals Patient will engage in recreation and leisure activities while on the unit. Treatment Plan Provide and encourage involvement in RT services. Social Work: Current Status Discharge Plan return home with home care svs and family support Potential for Family Training pt's is involved and attentive Anticipated Discharge Home Destination Discharge With home care svs and family support Nutrition: Current Status Monitoring Pt admitted to PMRU s/p R distal tibia-fibula syndesmosis ORIF. Pt eating 50-100% of most meals; has dentures, but no evidence difficulty chewing/ swallowing noted per nursing assessments. Skin intact per nursing skin assessments; Abhijeet 20 ( low risk). On appropriate consistent carb diet given hx DM; BG 130 on adm to PMRU. BMs noted 3/2, 3/4. No changes to current diet intervention to suggest; full nutrition assessment to follow per protocol. Goals: Physical Therapy: Initial Goals Bed Mobility Assistance Independent Transfer Mobility Assistance Independent Transfer/Bed Mobility Rolling Walker Recommended Devices Ambulation Independent Ambulation Recommended Devices Rolling Walker Ambulation Distance 50 Wheelchair Propulsion Ability Independent Wheelchair Distance (ft) 150 Physical Therapy: Updated Goals Transfer/Bed Mobility Rolling Walker Recommended Devices Occupational Therapy: Initial Goals Goals to be Completed in (Days 14-21 ) Upper Body Bathing Routine Supervision/Set Up Lower Body Bathing Routine Minimal Contact Assist Upper Body Dressing Routine Supervision/Set Up Lower Body Dressing Routine Minimal Contact Assist Toilet Hygeine and Clothing Minimal Contact Assist Management Routine Toilet Transfer Routine Supervision/Set Up Functional Transfers for ADL Supervision/Set Up Grooming Routine Supervision/Set Up Feeding Routine Independent Nursing: Goals Bladder Goal Independent Bowel Goal Independent Nutrition Goal 100% of all meals Medication Goal Independent Nutrition: Goals Intervention Goals 1. Intake will remain adequate to promote post-op healing 2. BG will remain adequately controlled (<180) 3. Pt will maintain regular bowel pattern without constipation (or diarrhea) Social Work: Goals Discharge Plan return home with home care svs and family support Potential for Family Training pt's is involved and attentive Anticipated Discharge Home Destination Discharge With home care svs and family support Care Plan: Care Plan ADL's - Improve/Maintain Start: 09/15/18 09:40 Freq: DAILY Status: Active Target: Protocol: Activity Type Activity Date Activity User E-Sign Co-Sign Detail Recorded Client Recorded Date Recorded By Document 09/17/18 14:26 [id number] 09/17/18 14:26 [id number] 09/17/18 14:26 PMRU Outcome: ADL's/ADL Transfers Orders/Interventions Occupational Therapy Evaluation & Treatment Communication Tool in Patient Room Patient to receive OT 5x/wk for 60-120 Therex min/day Self Care Management Group Therapy UE/LE ADL's with Assist Yes: min A LB ADLs, set-up UB ADLs ADL Transfers with Assist Yes: S Toileting: Transfers,Clothing Management Yes: min A ,Hygeine w/Assist Light Kitchen/Laundry w/Assist No Progression Toward Outcome/Goals Progressing Outcome/Goals Met Pt participated well in treatment session, continues to require v/c's in standing to fully maintain NWB status in standing with dynamic tasks, however responds well to v/c's and is making steady progress. Cardiovascular- Improve/Maintain Start: 09/15/18 12:32 Freq: QSHIFT Status: Active Target: Protocol: Activity Type Activity Date Activity User E-Sign Co-Sign Detail Recorded Client Recorded Date Recorded By Document 09/17/18 20:00 [id number] 09/17/18 23:39 [id number] 09/17/18 20:00 PMRU Outcome: Cardiovascular Vital Signs q Shift for 48hrs Then BID Yes Current Cardiovascular Outcome/Goal Maintain/ Achieve Baseline HR, BP , Perfusion Maintain/ Achieve Hemodynamic Stability Progression Toward Outcome/Goal Progressing DVT Prophylaxis- Improve/Maintain Start: 09/15/18 12:32 Freq: QSHIFT Status: Active Target: Protocol: Activity Type Activity Date Activity User E-Sign Co-Sign Detail Recorded Client Recorded Date Recorded By Document 09/17/18 20:00 [id number] 09/17/18 23:39 [id number] 09/17/18 20:00 PMRU Outcome: DVT Prophylaxis Outcome/Goals Remains Free of DVT Complies with DVT Prophylaxis /Treatment Progression Toward Outcome/Goals Progressing Discharge Planning - Improve/Maintain Start: 09/15/18 12:32 Freq: DAILY Status: Active Target: Protocol: Activity Type Activity Date Activity User E-Sign Co-Sign Detail Recorded Client Recorded Date Recorded By Document 09/18/18 01:01 [id number] 09/18/18 01:01 [id number] 09/18/18 01:01 PMRU Outcome: Discharge Planning Update Patient Family No Outcome/Goals Demonstrates Understanding of Discharge Plan Homecare Referral - See Comment Progression Toward Outcome/Goals Progressing Medication Administration Start: 09/15/18 12:32 Freq: QSHIFT Status: Active Target: Protocol: Activity Type Activity Date Activity User E-Sign Co-Sign Detail Recorded Client Recorded Date Recorded By Document 09/17/18 20:00 [id number] 09/17/18 23:39 [id number] 09/17/18 20:00 PMRU Outcome: Medication Administration Assess Patient Knowledge/Teach Med Yes Education for all Meds Outcome/Goals Patient Independent with Medication Administration at Home Progression Towards Outcome/Goals Progressing Is Patient Going Home on Lovenox? No Mobility- Improve/Maintain Start: 09/14/18 14:37 Freq: DAILY Status: Active Target: Protocol: Activity Type Activity Date Activity User E-Sign Co-Sign Detail Recorded Client Recorded Date Recorded By Document 09/14/18 14:37 [id number] 09/14/18 14:38 [id number] 09/14/18 14:37 PMRU Outcome: Mobility Physical Therapy Evaluation and Yes Treatment Activity OOB with Assistance Yes NWB Yes: RLE Device Yes Assistance Yes Patient to be seen 5x/wk for 60-120 min/ Therex day for: Mobility Training Gait Training W/C Mobility Balance Outcome/Goals Maintain/ Achieve Baseline Mobility Status Improve Mobility Status Demonstrates Proper Use of Assistive Devices Free from Complications of Immobility Bed Mobility Yes: Independent Transfers Yes: Modified independent with RW Gait x ft Yes: Modified independent 10' with RW W/C Mobility x ft Yes: Independent 150 ' BUE With HEP Yes: Independent Goal Comment Maintain NWB RLE Safety- Improve/Maintain Start: 09/15/18 12:32 Freq: QSHIFT Status: Active Target: Protocol: Activity Type Activity Date Activity User E-Sign Co-Sign Detail Recorded Client Recorded Date Recorded By Document 09/17/18 20:00 [id number] 09/17/18 23:39 [id number] 09/17/18 20:00 PMRU Outcome: Safety Outcome/Goals Remain Free of Injury or Harm Cooperates with Safety Measures for Least Restrictive Environment Prevent Falls/ Injury Progression Toward Outcome/Goals Progressing Skin- Improve/Maintain Start: 09/15/18 12:32 Freq: QSHIFT Status: Active Target: Protocol: Activity Type Activity Date Activity User E-Sign Co-Sign Detail Recorded Client Recorded Date Recorded By Document 09/17/18 20:00 [id number] 09/17/18 23:39 [id number] 09/17/18 20:00 PMRU Outcome: Skin Skin Risk Level Medium Outcome/Goals Maintain/ Improve Skin Intergrity Free from Decubitus Progression Toward Outcome/Goals Progressing Medicine Note: Length of Stay: 6 days Anticipated Discharge Destination: Home Tentative Discharge Date: 09/24/18 Discharged to: home
[2018-09-18] MEDS: Rivaroxaban TAB(*) 20 MG TAB PO SCH (15:52)
[2018-09-18] MEDS: Atorvastatin* 10 MG TAB PO SCH (17:30)
--- NOTE | 2018-09-18 19:10 | PN ---
Progress Note Date of Service: 09/18/18 Note: DANIEL MOHAN was visited. Therapy notes read and reviewed. Discussed in in terdisciplinary team rounds. He is worried about cast change. Will ask ortho Current Medications: Active Medications Generic Name Dose Route Start Last Admin Trade Name Freq PRN Reason Stop Dose Admin Acetaminophen 650 mg 09/14/18 11:01 09/17/18 14:09 Tylenol Tab* PO 650 mg Q4H PRN Administration FEVER > 101 Al Hydrox/Mg Hydrox/Simethicone 30 ml 09/14/18 11:01 Maalox Plus* PO Q6H PRN INDIGESTION Atorvastatin Calcium 5 mg 09/14/18 18:00 09/18/18 17:30 Lipitor* PO 5 mg 1800 TIMMY Administration Bisacodyl 10 mg 09/14/18 11:01 Dulcolax Supp* [place] DAILY PRN CONSTIPATION Citalopram Hydrobromide 20 mg 09/15/18 09:00 09/18/18 08:06 Celexa Tab* PO 20 mg DAILY TIMMY Administration Clonazepam 0.5 mg 09/15/18 09:00 09/18/18 08:06 Klonopin Tab(*) PO 0.5 mg 0900 TIMMY Administration Clonazepam 1 mg 09/14/18 21:00 09/18/18 08:06 Klonopin Tab(*) PO 1 mg BID TIMMY Administration Docusate Sodium 100 mg 09/14/18 21:00 09/18/18 08:07 Colace Cap* PO 100 mg BID TIMMY Administration Finasteride 5 mg 09/15/18 09:00 09/18/18 08:07 Proscar Tab* PO 5 mg DAILY TIMMY Administration Lisinopril 5 mg 09/15/18 09:00 09/18/18 08:07 Prinivil Tab* PO 5 mg DAILY TIMMY Administration Magnesium Hydroxide 30 ml 09/14/18 11:01 Milk Of Magnesia Liq* PO Q6H PRN CONSTIPATION Metoprolol Succinate 50 mg 09/14/18 21:00 09/18/18 08:07 Toprol Xl Tab* PO 50 mg BID TIMMY Administration Oxycodone/Acetaminophen 1 tab 09/14/18 11:17 Percocet 5/325 Tab* PO Q4H PRN Pain not relieved by tylenol Polyethylene Glycol/Electrolytes 17 gm 09/16/18 09:21 Miralax* PO DAILY PRN CONSTIPATION Rivaroxaban 20 mg 09/14/18 16:00 09/18/18 15:52 Xarelto(*) PO 20 mg 1600 TIMMY Administration Senna 2 tab 09/14/18 21:00 09/17/18 21:12 Senokot Tab* PO 2 tab BEDTIME TIMMY Administration Tamsulosin HCl 0.4 mg 09/15/18 09:00 09/18/18 08:07 Flomax Cap* PO 0.4 mg DAILY TIMMY Administration Torsemide 10 mg 09/14/18 11:15 Demadex* PO DAILY PRN edema Vital Signs: Vital Signs Temp Pulse Resp BP Pulse Ox 98.5 F 72 18 115/47 99 09/18/18 15:58 09/18/18 16:05 09/18/18 15:58 09/18/18 15:58 09/18/18 16:02 Exam: GENERAL: no acute distress. alert and appropriate LUNGS: clear to auscultation bilaterally. HEART: irregular rate and rhythm (has h/o P.Afib and ventricular ectopy) ABDOMEN: + bowel sounds, soft, non-tender, non-distended EXTREMITIES: right leg casted. Left leg no edema and 2+ pedal pulses. NEUROLOGIC: LE motor 5/5 BLE with limited testing of right ankle due to cast. Normal sensation in BLE. Assessment/Plan: 77yo man s/p ORIF of right ankle fracture 1. Right ankle fracture: s/p ORIF and casted. f/u Dr. Padilla 2 weeks post-op ( around 09/26). NWB RLE. PT/OT. Check with ortho about cast 2. P.Afib/flutter, tachy/trisha syndrome s/p pacemaker: Metoprolol 50mg bid and Xarelto. Will need cardiac EP consult in [place] after recovered from ankle. 3. CHF: Demadex PRN 4. Hypertension: metoprolol and lisinopril. 5. DVT prophylaxis: Xarelto 6. Diabetes mellitus diet controlled: consistent carbohydrate diet. No FS or coverage. f/u with PCP. 7. Constipation: bowel meds. Miralax prn. 8. Advanced directives: full code. is HCP. 09/18/18 19:10
[2018-09-18] MEDS: Senna TAB PO SCH (20:05)
[2018-09-19] MEDS: Tamsulosin CAP* 0.4 MG PO SCH (08:36)
[2018-09-19] MEDS: Citalopram TAB* 20 MG PO SCH (08:36)
[2018-09-19] MEDS: Docusate CAP* 100 MG PO SCH ×2 (08:36→20:17)
[2018-09-19] MEDS: Lisinopril TAB* 5 MG PO SCH (08:36)
[2018-09-19] MEDS: Finasteride TAB* 5 MG PO SCH (08:36)
[2018-09-19] MEDS: clonazePAM TAB(*) 0.5 MG PO SCH (08:37)
[2018-09-19] MEDS: clonazePAM TAB(*) 1 MG PO SCH ×2 (08:37→20:14)
[2018-09-19] MEDS: Metoprolol Succinate XL TAB* 25 MG PO SCH ×2 (08:37→20:15)
[2018-09-19] MEDS: Rivaroxaban TAB(*) 20 MG TAB PO SCH (16:32)
--- NOTE | 2018-09-19 18:17 | PN ---
Progress Note Date of Service: 09/19/18 Note: DANIEL MOHAN was visited. Therapy notes read and reviewed. I spoke with orthopedic PA about possible cast. She will check with Dr. Padilla Current Medications: Active Medications Generic Name Dose Route Start Last Admin Trade Name Freq PRN Reason Stop Dose Admin Acetaminophen 650 mg 09/14/18 11:01 09/17/18 14:09 Tylenol Tab* PO 650 mg Q4H PRN Administration FEVER > 101 Al Hydrox/Mg Hydrox/Simethicone 30 ml 09/14/18 11:01 Maalox Plus* PO Q6H PRN INDIGESTION Atorvastatin Calcium 5 mg 09/14/18 18:00 09/18/18 17:30 Lipitor* PO 5 mg 1800 TIMMY Administration Bisacodyl 10 mg 09/14/18 11:01 Dulcolax Supp* [place] DAILY PRN CONSTIPATION Citalopram Hydrobromide 20 mg 09/15/18 09:00 09/19/18 08:36 Celexa Tab* PO 20 mg DAILY TIMMY Administration Clonazepam 0.5 mg 09/15/18 09:00 09/19/18 08:37 Klonopin Tab(*) PO 0.5 mg 0900 TIMMY Administration Clonazepam 1 mg 09/14/18 21:00 09/19/18 08:37 Klonopin Tab(*) PO 1 mg BID TIMMY Administration Docusate Sodium 100 mg 09/14/18 21:00 09/19/18 08:36 Colace Cap* PO Not Given BID TIMMY Finasteride 5 mg 09/15/18 09:00 09/19/18 08:36 Proscar Tab* PO 5 mg DAILY TIMMY Administration Lisinopril 5 mg 09/15/18 09:00 09/19/18 08:36 Prinivil Tab* PO 5 mg DAILY TIMMY Administration Magnesium Hydroxide 30 ml 09/14/18 11:01 Milk Of Magnesia Liq* PO Q6H PRN CONSTIPATION Metoprolol Succinate 50 mg 09/14/18 21:00 09/19/18 08:37 Toprol Xl Tab* PO 50 mg BID TIMMY Administration Oxycodone/Acetaminophen 1 tab 09/14/18 11:17 Percocet 5/325 Tab* PO Q4H PRN Pain not relieved by tylenol Polyethylene Glycol/Electrolytes 17 gm 09/16/18 09:21 Miralax* PO DAILY PRN CONSTIPATION Rivaroxaban 20 mg 09/14/18 16:00 09/19/18 16:32 Xarelto(*) PO 20 mg 1600 TIMMY Administration Senna 2 tab 09/14/18 21:00 09/18/18 20:05 Senokot Tab* PO Not Given BEDTIME TIMMY Tamsulosin HCl 0.4 mg 09/15/18 09:00 09/19/18 08:36 Flomax Cap* PO 0.4 mg DAILY TIMMY Administration Torsemide 10 mg 09/14/18 11:15 Demadex* PO DAILY PRN edema Vital Signs: Vital Signs Temp Pulse Resp BP Pulse Ox 98.4 F 78 16 112/54 98 09/19/18 16:38 09/19/18 16:39 09/19/18 17:18 09/19/18 16:38 09/19/18 17:18 Exam: GENERAL: no acute distress. alert and appropriate LUNGS: clear to auscultation bilaterally. HEART: irregular rate and rhythm (has h/o P.Afib and ventricular ectopy) ABDOMEN: + bowel sounds, soft, non-tender, non-distended EXTREMITIES: right leg casted. Left leg no edema and 2+ pedal pulses. NEUROLOGIC: LE motor 5/5 BLE with limited testing of right ankle due to splint. Normal sensation in BLE. Assessment/Plan: 77yo man s/p ORIF of right ankle fracture 1. Right ankle fracture: s/p ORIF and casted. f/u Dr. Padilla 2 weeks post-op ( around 09/26). NWB RLE. PT/OT. Check with ortho about cast 2. P.Afib/flutter, tachy/trisha syndrome s/p pacemaker: Metoprolol 50mg bid and Xarelto. Will need cardiac EP consult in [place] after recovered from ankle. 3. CHF: Demadex PRN 4. Hypertension: metoprolol and lisinopril. 5. DVT prophylaxis: Xarelto 6. Diabetes mellitus diet controlled: consistent carbohydrate diet. No FS or coverage. f/u with PCP. 7. Constipation: bowel meds. Miralax prn. 8. Advanced directives: full code. is HCP. 09/19/18 18:17
[2018-09-19] MEDS: Atorvastatin* 10 MG TAB PO SCH (19:26)
[2018-09-19] MEDS: Senna TAB PO SCH (20:17)
[2018-09-20] MEDS: Finasteride TAB* 5 MG PO SCH (09:09)
[2018-09-20] MEDS: Lisinopril TAB* 5 MG PO SCH (09:09)
[2018-09-20] MEDS: Metoprolol Succinate XL TAB* 25 MG PO SCH ×2 (09:09→20:19)
[2018-09-20] MEDS: Citalopram TAB* 20 MG PO SCH (09:09)
[2018-09-20] MEDS: Tamsulosin CAP* 0.4 MG PO SCH (09:10)
[2018-09-20] MEDS: clonazePAM TAB(*) 1 MG PO SCH ×2 (09:10→20:19)
[2018-09-20] MEDS: clonazePAM TAB(*) 0.5 MG PO SCH (09:10)
[2018-09-20] MEDS: Docusate CAP* 100 MG PO SCH ×2 (09:14→20:19)
[2018-09-20] MEDS: Acetaminophen TAB* 325 MG PO PRN (15:44)
[2018-09-20] MEDS: Atorvastatin* 10 MG TAB PO SCH (17:29)
[2018-09-20] MEDS: Rivaroxaban TAB(*) 20 MG TAB PO SCH (17:30)
--- NOTE | 2018-09-20 19:25 | PN ---
Progress Note Date of Service: 09/20/18 Note: DANIEL MOHAN was visited. Therapy notes read and reviewed. I spoke with orthopedics. They will cast his ankle Monday before he leaves. He has no complaints otherwise. He had a small amount of blood when he went to urinate Current Medications: Active Medications Generic Name Dose Route Start Last Admin Trade Name Freq PRN Reason Stop Dose Admin Acetaminophen 650 mg 09/14/18 11:01 09/20/18 15:44 Tylenol Tab* PO 650 mg Q4H PRN Administration FEVER > 101 Al Hydrox/Mg Hydrox/Simethicone 30 ml 09/14/18 11:01 Maalox Plus* PO Q6H PRN INDIGESTION Atorvastatin Calcium 5 mg 09/14/18 18:00 09/20/18 17:29 Lipitor* PO 5 mg 1800 TIMMY Administration Bisacodyl 10 mg 09/14/18 11:01 Dulcolax Supp* [place] DAILY PRN CONSTIPATION Citalopram Hydrobromide 20 mg 09/15/18 09:00 09/20/18 09:09 Celexa Tab* PO 20 mg DAILY TIMMY Administration Clonazepam 0.5 mg 09/15/18 09:00 09/20/18 09:10 Klonopin Tab(*) PO 0.5 mg 0900 TIMMY Administration Clonazepam 1 mg 09/14/18 21:00 09/20/18 09:10 Klonopin Tab(*) PO 1 mg BID TIMMY Administration Docusate Sodium 100 mg 09/14/18 21:00 09/20/18 09:14 Colace Cap* PO Not Given BID TIMMY Finasteride 5 mg 09/15/18 09:00 09/20/18 09:09 Proscar Tab* PO 5 mg DAILY TIMMY Administration Lisinopril 5 mg 09/15/18 09:00 09/20/18 09:09 Prinivil Tab* PO 5 mg DAILY TIMMY Administration Magnesium Hydroxide 30 ml 09/14/18 11:01 Milk Of Magnesia Liq* PO Q6H PRN CONSTIPATION Metoprolol Succinate 50 mg 09/14/18 21:00 09/20/18 09:09 Toprol Xl Tab* PO 50 mg BID TIMMY Administration Oxycodone/Acetaminophen 1 tab 09/14/18 11:17 Percocet 5/325 Tab* PO Q4H PRN Pain not relieved by tylenol Polyethylene Glycol/Electrolytes 17 gm 09/16/18 09:21 Miralax* PO DAILY PRN CONSTIPATION Rivaroxaban 20 mg 09/14/18 16:00 09/20/18 17:30 Xarelto(*) PO 20 mg 1600 TIMMY Administration Senna 2 tab 09/14/18 21:00 09/19/18 20:17 Senokot Tab* PO Not Given BEDTIME TIMMY Tamsulosin HCl 0.4 mg 09/15/18 09:00 09/20/18 09:10 Flomax Cap* PO 0.4 mg DAILY TIMMY Administration Torsemide 10 mg 09/14/18 11:15 Demadex* PO DAILY PRN edema Vital Signs: Vital Signs Temp Pulse Resp BP Pulse Ox 98.9 F 40 16 106/49 98 09/20/18 15:55 09/20/18 15:55 09/20/18 15:51 09/20/18 15:55 09/20/18 17:44 Exam: GENERAL: no acute distress. alert and appropriate LUNGS: clear to auscultation bilaterally. HEART: irregular rate and rhythm (has h/o P.Afib and ventricular ectopy) ABDOMEN: + bowel sounds, soft, non-tender, non-distended EXTREMITIES: right leg casted. Left leg no edema and 2+ pedal pulses. NEUROLOGIC: LE motor 5/5 BLE with limited testing of right ankle due to splint. Normal sensation in BLE. Assessment/Plan: 77yo man s/p ORIF of right ankle fracture 1. Right ankle fracture: s/p ORIF and casted. f/u Dr. Padilla 2 weeks post-op ( around 09/26). NWB RLE. PT/OT. Check with ortho about cast 2. P.Afib/flutter, tachy/trisha syndrome s/p pacemaker: Metoprolol 50mg bid and Xarelto. Will need cardiac EP consult in [place] after recovered from ankle. 3. CHF: Demadex PRN 4. Hypertension: metoprolol and lisinopril. 5. DVT prophylaxis: Xarelto 6. Diabetes mellitus diet controlled: consistent carbohydrate diet. No FS or coverage. f/u with PCP. 7. Constipation: bowel meds. Miralax prn. 8. Advanced directives: full code. is HCP. 9. Hematuria: will follow. May need urology 09/20/18 19:39
[2018-09-20] MEDS: Senna TAB PO SCH (20:19)
[2018-09-21] MEDS: Citalopram TAB* 20 MG PO SCH (09:47)
[2018-09-21] MEDS: Metoprolol Succinate XL TAB* 25 MG PO SCH ×2 (09:48→20:13)
[2018-09-21] MEDS: clonazePAM TAB(*) 0.5 MG PO SCH (09:48)
[2018-09-21] MEDS: Finasteride TAB* 5 MG PO SCH (09:48)
[2018-09-21] MEDS: Tamsulosin CAP* 0.4 MG PO SCH (09:48)
[2018-09-21] MEDS: clonazePAM TAB(*) 1 MG PO SCH ×2 (09:48→20:13)
[2018-09-21] MEDS: Lisinopril TAB* 5 MG PO SCH (09:48)
[2018-09-21] MEDS: Docusate CAP* 100 MG PO SCH ×2 (09:51→20:12)
[2018-09-21] MEDS: Rivaroxaban TAB(*) 20 MG TAB PO SCH (17:19)
[2018-09-21] MEDS: Atorvastatin* 10 MG TAB PO SCH (17:19)
[2018-09-21 18:02] LABS: Urine Appearance Clear; Urine Bacteria Absent (Absent); Urine Bilirubin Negative (Negative); Urine Blood 2+ (Negative); Urine Color Yellow; Urine Glucose Negative (Negative); Urine Ketones Negative (Negative); Urine Nitrite Negative (Negative); Urine Protein Negative (Negative); Urine Red Blood Cell 3+(>10/hpf) (Absent); Urine Specific Gravity 1.024 (1.010-1.030); Urine Squamous Epithelial Cell Present (Absent); Urine Urobilinogen Positive (Negative); Urine White Blood Cell Absent (Absent)
--- NOTE | 2018-09-21 18:51 | PN ---
Progress Note Date of Service: 09/21/18 Note: DANIEL MOHAN was visited. Therapy notes read and reviewed. He had a little more heamturia. I ordered a U/A which was negative. The patient had an Ultrasound of his bladder and kidneys which did not explain his hematuria. Will need a cystoscopy as an outpatient. Will check CBC in am Current Medications: Active Medications Generic Name Dose Route Start Last Admin Trade Name Freq PRN Reason Stop Dose Admin Acetaminophen 650 mg 09/14/18 11:01 09/20/18 15:44 Tylenol Tab* PO 650 mg Q4H PRN Administration FEVER > 101 Al Hydrox/Mg Hydrox/Simethicone 30 ml 09/14/18 11:01 Maalox Plus* PO Q6H PRN INDIGESTION Atorvastatin Calcium 5 mg 09/14/18 18:00 09/21/18 17:19 Lipitor* PO 5 mg 1800 TIMMY Administration Bisacodyl 10 mg 09/14/18 11:01 Dulcolax Supp* [place] DAILY PRN CONSTIPATION Citalopram Hydrobromide 20 mg 09/15/18 09:00 09/21/18 09:47 Celexa Tab* PO 20 mg DAILY TIMMY Administration Clonazepam 0.5 mg 09/15/18 09:00 09/21/18 09:48 Klonopin Tab(*) PO 0.5 mg 0900 TIMMY Administration Clonazepam 1 mg 09/14/18 21:00 09/21/18 09:48 Klonopin Tab(*) PO 1 mg BID TIMMY Administration Docusate Sodium 100 mg 09/14/18 21:00 09/21/18 09:51 Colace Cap* PO Not Given BID TIMMY Finasteride 5 mg 09/15/18 09:00 09/21/18 09:48 Proscar Tab* PO 5 mg DAILY TIMMY Administration Lisinopril 5 mg 09/15/18 09:00 09/21/18 09:48 Prinivil Tab* PO 5 mg DAILY TIMMY Administration Magnesium Hydroxide 30 ml 09/14/18 11:01 Milk Of Magnesia Liq* PO Q6H PRN CONSTIPATION Metoprolol Succinate 50 mg 09/14/18 21:00 09/21/18 09:48 Toprol Xl Tab* PO 50 mg BID TIMMY Administration Oxycodone/Acetaminophen 1 tab 09/14/18 11:17 Percocet 5/325 Tab* PO Q4H PRN Pain not relieved by tylenol Polyethylene Glycol/Electrolytes 17 gm 09/16/18 09:21 Miralax* PO DAILY PRN CONSTIPATION Rivaroxaban 20 mg 09/14/18 16:00 09/21/18 17:19 Xarelto(*) PO 20 mg 1600 TIMMY Administration Senna 2 tab 09/14/18 21:00 09/20/18 20:19 Senokot Tab* PO 2 tab BEDTIME TIMMY Administration Tamsulosin HCl 0.4 mg 09/15/18 09:00 09/21/18 09:48 Flomax Cap* PO 0.4 mg DAILY TIMMY Administration Torsemide 10 mg 09/14/18 11:15 Demadex* PO DAILY PRN edema Vital Signs: Vital Signs Temp Pulse Resp BP Pulse Ox 98.6 F 40 24 109/50 97 09/21/18 16:17 09/21/18 16:17 09/21/18 16:17 09/21/18 16:17 09/21/18 16:17 Lab Results: Laboratory Results - last 24 hr 09/21/18 17:29 Urine Color Yellow Urine Appearance Clear Urine pH 6.0 Ur Specific [place] 1.024 Urine Protein Negative Urine Ketones Negative Urine Blood 2+ A Urine Nitrate Negative Urine Bilirubin Negative Urine Urobilinogen Positive A Ur Leukocyte Esterase Negative Urine WBC (Auto) Absent Urine RBC (Auto) 3+(>10/hpf) A Ur Squamous Epith Cells Present A Urine Bacteria Absent Urine Glucose Negative Exam: GENERAL: no acute distress. alert and appropriate LUNGS: clear to auscultation bilaterally. HEART: irregular rate and rhythm (has h/o P.Afib and ventricular ectopy) ABDOMEN: + bowel sounds, soft, non-tender, non-distended EXTREMITIES: right leg casted. Left leg no edema and 2+ pedal pulses. NEUROLOGIC: LE motor 5/5 BLE with limited testing of right ankle due to splint. Normal sensation in BLE. Assessment/Plan: 77yo man s/p ORIF of right ankle fracture 1. Right ankle fracture: s/p ORIF and casted. NWB RLE. PT/OT. Ortho will change cast Monday 2. P.Afib/flutter, tachy/trisha syndrome s/p pacemaker: Metoprolol 50mg bid and Xarelto. Will need cardiac EP consult in [place] after recovered from ankle. 3. CHF: Demadex PRN 4. Hypertension: metoprolol and lisinopril. 5. DVT prophylaxis: Xarelto 6. Diabetes mellitus diet controlled: consistent carbohydrate diet. No FS or coverage. f/u with PCP. 7. Constipation: bowel meds. Miralax prn. 8. Advanced directives: full code. is HCP. 9. Hematuria: will follow. May need urology, Ultrasound of bladder and kidneys ok. U/A negative 09/21/18 18:51
[2018-09-21] MEDS: Senna TAB PO SCH (20:12)
[2018-09-22 05:27] LABS: ABS Basophils 0 10^3/ul (0-0.2); ABS Eosinophils 0.1 10^3/ul (0-0.6); ABS Lymphocytes 1.4 10^3/ul (1.0-4.8); ABS Monocytes 0.9 10^3/ul (0-0.8); ABS Neutrophils 4.7 10^3/ul (1.5-7.7); ABS Nucleated RBC 0 10^3/ul; Eosinophil % 1.5 %; Hematocrit 38 % (42-52); Lymphocyte % 19.6 %; Mean Corpuscular HGB Conc 34 g/dl (31-36); Mean Corpuscular Hemoglobin 33 pg (27-31); Mean Corpuscular Volume 97 fL (80-94); Mean Platelet Volume 7.5 fL (7.4-10.4); Nucleated Red Blood Cells % 0; Platelet Count 172 10^3/ul (150-450); Red Blood Count 3.97 10^6/ul (4.00-5.40); Red Cell Distribution Width 13 % (10.5-15); White Blood Count 7.2 10^3/ul (3.5-10.8)
[2018-09-22 05:47] LABS: Albumin 3.2 g/dL (3.2-5.2); Albumin/Globulin Ratio 1.1 (1-3); BUN/Creatinine Ratio 24.4 (8-20); Calcium 9.1 mg/dL (8.6-10.3); EGFR African American 110.8 (>60); EGFR Non-African American 91.6 (>60); Globulin 2.8 g/dL (2-4); Potassium 4.5 mmol/L (3.5-5.0)
[2018-09-22] MEDS: Citalopram TAB* 20 MG PO SCH (09:16)
[2018-09-22] MEDS: Docusate CAP* 100 MG PO SCH ×2 (09:16→20:28)
[2018-09-22] MEDS: clonazePAM TAB(*) 0.5 MG PO SCH (09:17)
[2018-09-22] MEDS: clonazePAM TAB(*) 1 MG PO SCH ×2 (09:18→20:23)
[2018-09-22] MEDS: Finasteride TAB* 5 MG PO SCH (09:18)
[2018-09-22] MEDS: Lisinopril TAB* 5 MG PO SCH (09:18)
[2018-09-22] MEDS: Metoprolol Succinate XL TAB* 25 MG PO SCH ×2 (09:19→20:23)
[2018-09-22] MEDS: Tamsulosin CAP* 0.4 MG PO SCH (09:19)
--- NOTE | 2018-09-22 16:21 | PN ---
Progress Note Date of Service: 09/22/18 Note: DANIEL MOHAN was visited. Therapy notes read and reviewed. His hematuria has lessened a little. Otherwise, he has no complaints. Current Medications: Active Medications Generic Name Dose Route Start Last Admin Trade Name Freq PRN Reason Stop Dose Admin Acetaminophen 650 mg 09/14/18 11:01 09/20/18 15:44 Tylenol Tab* PO 650 mg Q4H PRN Administration FEVER > 101 Al Hydrox/Mg Hydrox/Simethicone 30 ml 09/14/18 11:01 Maalox Plus* PO Q6H PRN INDIGESTION Atorvastatin Calcium 5 mg 09/14/18 18:00 09/21/18 17:19 Lipitor* PO 5 mg 1800 TIMMY Administration Bisacodyl 10 mg 09/14/18 11:01 Dulcolax Supp* [place] DAILY PRN CONSTIPATION Citalopram Hydrobromide 20 mg 09/15/18 09:00 09/22/18 09:16 Celexa Tab* PO 20 mg DAILY TIMMY Administration Clonazepam 0.5 mg 09/15/18 09:00 09/22/18 09:17 Klonopin Tab(*) PO 0.5 mg 0900 TIMMY Administration Clonazepam 1 mg 09/14/18 21:00 09/22/18 09:18 Klonopin Tab(*) PO 1 mg BID TIMMY Administration Docusate Sodium 100 mg 09/14/18 21:00 09/22/18 09:16 Colace Cap* PO Not Given BID TIMMY Finasteride 5 mg 09/15/18 09:00 09/22/18 09:18 Proscar Tab* PO 5 mg DAILY TIMMY Administration Lisinopril 5 mg 09/15/18 09:00 09/22/18 09:18 Prinivil Tab* PO 5 mg DAILY TIMMY Administration Magnesium Hydroxide 30 ml 09/14/18 11:01 Milk Of Magnesia Liq* PO Q6H PRN CONSTIPATION Metoprolol Succinate 50 mg 09/14/18 21:00 09/22/18 09:19 Toprol Xl Tab* PO 50 mg BID TIMMY Administration Oxycodone/Acetaminophen 1 tab 09/14/18 11:17 Percocet 5/325 Tab* PO Q4H PRN Pain not relieved by tylenol Polyethylene Glycol/Electrolytes 17 gm 09/16/18 09:21 Miralax* PO DAILY PRN CONSTIPATION Rivaroxaban 20 mg 09/14/18 16:00 09/21/18 17:19 Xarelto(*) PO 20 mg 1600 TIMMY Administration Senna 2 tab 09/14/18 21:00 09/21/18 20:12 Senokot Tab* PO Not Given BEDTIME TIMMY Tamsulosin HCl 0.4 mg 09/15/18 09:00 09/22/18 09:19 Flomax Cap* PO 0.4 mg DAILY TIMMY Administration Torsemide 10 mg 09/14/18 11:15 Demadex* PO DAILY PRN edema Vital Signs: Vital Signs Temp Pulse Resp BP Pulse Ox 98.3 F 76 18 99/56 97 09/22/18 15:33 09/22/18 15:36 09/22/18 15:33 09/22/18 15:33 09/22/18 15:33 Lab Results: Laboratory Results - last 24 hr 09/21/18 09/22/18 09/22/18 17:29 05:21 05:21 WBC 7.2 RBC 3.97 L Hgb 13.0 L Hct 38 L MCV 97 H MCH 33 H MCHC 34 RDW 13 Plt Count 172 MPV 7.5 Neut % (Auto) 65.9 Lymph % (Auto) 19.6 [place] % (Auto) 12.5 Eos % (Auto) 1.5 Baso % (Auto) 0.5 Absolute Neuts (auto) 4.7 Absolute Lymphs (auto) 1.4 Absolute Monos (auto) 0.9 H Absolute Eos (auto) 0.1 Absolute Basos (auto) 0 Absolute Nucleated RBC 0 Nucleated RBC % 0 Sodium 137 Potassium 4.5 Chloride 103 Carbon Dioxide 31 Anion Gap 3 BUN 20 Creatinine 0.82 Est GFR ( Amer) 110.8 Est GFR (Non-Af Amer) 91.6 BUN/Creatinine Ratio 24.4 H Glucose 139 H Calcium 9.1 Total Bilirubin 1.00 AST 11 L ALT 7 Alkaline Phosphatase 49 Total Protein 6.0 L Albumin 3.2 Globulin 2.8 Albumin/Globulin Ratio 1.1 Urine Color Yellow Urine Appearance Clear Urine pH 6.0 Ur Specific [place] 1.024 Urine Protein Negative Urine Ketones Negative Urine Blood 2+ A Urine Nitrate Negative Urine Bilirubin Negative Urine Urobilinogen Positive A Ur Leukocyte Esterase Negative Urine WBC (Auto) Absent Urine RBC (Auto) 3+(>10/hpf) A Ur Squamous Epith Cells Present A Urine Bacteria Absent Urine Glucose Negative Exam: GENERAL: no acute distress. alert and appropriate LUNGS: clear to auscultation bilaterally. HEART: irregular; S1 S2 ABDOMEN: + bowel sounds, soft, non-tender, non-distended EXTREMITIES: right leg casted. Left leg no edema and 2+ pedal pulses. NEUROLOGIC: LE motor 5/5 BLE with limited testing of right ankle due to splint. Normal sensation in BLE. Assessment/Plan: 77yo man s/p ORIF of right ankle fracture 1. Right ankle fracture: s/p ORIF and casted. NWB RLE. PT/OT. Ortho will change cast Monday 2. P.Afib/flutter, tachy/trisha syndrome s/p pacemaker: Metoprolol 50mg bid and Xarelto. Will need cardiac EP consult in [place] after recovered from ankle. 3. CHF: Demadex PRN 4. Hypertension: metoprolol and lisinopril. 5. DVT prophylaxis: Xarelto 6. Diabetes mellitus diet controlled: consistent carbohydrate diet. No FS or coverage. f/u with PCP. 7. Constipation: bowel meds. Miralax prn. 8. Advanced directives: full code. is HCP. 9. Hematuria: will follow. May need urology, Ultrasound of bladder and kidneys ok. U/A negative 09/22/18 16:22
[2018-09-22] MEDS: Rivaroxaban TAB(*) 20 MG TAB PO SCH (17:24)
[2018-09-22] MEDS: Atorvastatin* 10 MG TAB PO SCH (17:24)
[2018-09-22] MEDS: Senna TAB PO SCH (20:28)
[2018-09-23] MEDS: clonazePAM TAB(*) 0.5 MG PO SCH (08:31)
[2018-09-23] MEDS: clonazePAM TAB(*) 1 MG PO SCH ×2 (08:31→20:20)
[2018-09-23] MEDS: Metoprolol Succinate XL TAB* 25 MG PO SCH ×2 (08:32→20:29)
[2018-09-23] MEDS: Docusate CAP* 100 MG PO SCH ×2 (08:32→20:20)
[2018-09-23] MEDS: Lisinopril TAB* 5 MG PO SCH (08:32)
[2018-09-23] MEDS: Finasteride TAB* 5 MG PO SCH (08:32)
[2018-09-23] MEDS: Citalopram TAB* 20 MG PO SCH (08:33)
[2018-09-23] MEDS: Tamsulosin CAP* 0.4 MG PO SCH (09:33)
--- NOTE | 2018-09-23 15:32 | PN ---
Progress Note Date of Service: 09/23/18 Note: DANIEL MOHAN was visited. Therapy notes read and reviewed. No hematuria today. Doing well. Will go home tomorrow. Current Medications: Active Medications Generic Name Dose Route Start Last Admin Trade Name Freq PRN Reason Stop Dose Admin Acetaminophen 650 mg 09/14/18 11:01 09/20/18 15:44 Tylenol Tab* PO 650 mg Q4H PRN Administration FEVER > 101 Al Hydrox/Mg Hydrox/Simethicone 30 ml 09/14/18 11:01 Maalox Plus* PO Q6H PRN INDIGESTION Atorvastatin Calcium 5 mg 09/14/18 18:00 09/22/18 17:24 Lipitor* PO 5 mg 1800 TIMMY Administration Bisacodyl 10 mg 09/14/18 11:01 Dulcolax Supp* [place] DAILY PRN CONSTIPATION Citalopram Hydrobromide 20 mg 09/15/18 09:00 09/23/18 08:33 Celexa Tab* PO 20 mg DAILY TIMMY Administration Clonazepam 0.5 mg 09/15/18 09:00 09/23/18 08:31 Klonopin Tab(*) PO 0.5 mg 0900 TIMMY Administration Clonazepam 1 mg 09/14/18 21:00 09/23/18 08:31 Klonopin Tab(*) PO 1 mg BID TIMMY Administration Docusate Sodium 100 mg 09/14/18 21:00 09/23/18 08:32 Colace Cap* PO Not Given BID TIMMY Finasteride 5 mg 09/15/18 09:00 09/23/18 08:32 Proscar Tab* PO 5 mg DAILY TIMMY Administration Lisinopril 5 mg 09/15/18 09:00 09/23/18 08:32 Prinivil Tab* PO 5 mg DAILY TIMMY Administration Magnesium Hydroxide 30 ml 09/14/18 11:01 Milk Of Magnesia Liq* PO Q6H PRN CONSTIPATION Metoprolol Succinate 50 mg 09/14/18 21:00 09/23/18 08:32 Toprol Xl Tab* PO 50 mg BID TIMMY Administration Oxycodone/Acetaminophen 1 tab 09/14/18 11:17 Percocet 5/325 Tab* PO Q4H PRN Pain not relieved by tylenol Polyethylene Glycol/Electrolytes 17 gm 09/16/18 09:21 Miralax* PO DAILY PRN CONSTIPATION Rivaroxaban 20 mg 09/14/18 16:00 09/22/18 17:24 Xarelto(*) PO 20 mg 1600 TIMMY Administration Senna 2 tab 09/14/18 21:00 09/22/18 20:28 Senokot Tab* PO Not Given BEDTIME TIMMY Tamsulosin HCl 0.4 mg 09/15/18 09:00 09/23/18 09:33 Flomax Cap* PO 0.4 mg DAILY TIMMY Administration Torsemide 10 mg 09/14/18 11:15 Demadex* PO DAILY PRN edema Vital Signs: Vital Signs Temp Pulse Resp BP Pulse Ox 97.9 F 80 18 114/57 98 09/23/18 04:27 09/23/18 04:27 09/23/18 08:31 09/23/18 04:27 09/23/18 08:00 Exam: GENERAL: no acute distress. alert and appropriate LUNGS: clear to auscultation bilaterally. HEART: irregular; S1 S2 ABDOMEN: + bowel sounds, soft, non-tender, non-distended EXTREMITIES: right leg casted. Left leg no edema and 2+ pedal pulses. NEUROLOGIC: LE motor 5/5 BLE with limited testing of right ankle due to splint. Normal sensation in BLE. Assessment/Plan: 77yo man s/p ORIF of right ankle fracture 1. Right ankle fracture: s/p ORIF and casted. NWB RLE. PT/OT. Ortho will change cast Monday 2. P.Afib/flutter, tachy/trisha syndrome s/p pacemaker: Metoprolol 50mg bid and Xarelto. Will need cardiac EP consult in [place] after recovered from ankle. 3. CHF: Demadex PRN 4. Hypertension: metoprolol and lisinopril. 5. DVT prophylaxis: Xarelto 6. Diabetes mellitus diet controlled: consistent carbohydrate diet. No FS or coverage. f/u with PCP. 7. Constipation: bowel meds. Miralax prn. 8. Advanced directives: full code. is HCP. 9. Hematuria: will follow. May need urology, Ultrasound of bladder and kidneys ok. U/A negative 09/23/18 15:33
[2018-09-23] MEDS: Rivaroxaban TAB(*) 20 MG TAB PO SCH (17:02)
[2018-09-23] MEDS: Atorvastatin* 10 MG TAB PO SCH (17:05)
[2018-09-23] MEDS: Senna TAB PO SCH (19:58)
[2018-09-24 06:46] VITALS: BP 107/54
[2018-09-24] MEDS: Citalopram TAB* 20 MG PO SCH (09:28)
[2018-09-24] MEDS: clonazePAM TAB(*) 0.5 MG PO SCH (09:29)
[2018-09-24] MEDS: clonazePAM TAB(*) 1 MG PO SCH (09:29)
[2018-09-24] MEDS: Docusate CAP* 100 MG PO SCH ×2 (09:30→09:34)
[2018-09-24] MEDS: Lisinopril TAB* 5 MG PO SCH (09:30)
[2018-09-24] MEDS: Tamsulosin CAP* 0.4 MG PO SCH (09:31)
[2018-09-24] MEDS: Metoprolol Succinate XL TAB* 25 MG PO SCH (09:32)
[2018-09-24] MEDS: Finasteride TAB* 5 MG PO SCH (09:33)
--- NOTE | 2018-09-24 12:03 | PN ---
Progress Note - Progress Note Date of Service: 09/24/18 SOAP: Subjective: []Pt seen at bedside in [facility] for cast placement. He feels well without complaint. Right ankle is not painful, he will go home today. Objective: []General: Well appearing, pleasant, NAD RLE: macarena removed, steri strips placed, incisions CDI. DP2 . Short leg cast placed. Sensation intact to light touch distally, able to wiggle toes, capillary refill less than two seconds distally. Assessment: []POD 12 sp ORIF right ankle Plan: []NWB RLE FU Dr Padilla in 3 weeks xrays today Vital Signs Temp 97.6 F 09/24/18 06:16 Pulse 76 09/24/18 06:16 Resp 18 09/24/18 09:29 BP 107/54 09/24/18 06:16 Pulse Ox 96 09/24/18 08:00 Intake & Output 09/23/18 09/24/18 09/24/18 18:59 06:59 18:59 Intake Total 840 480 Output Total 500 1125 Balance 340 -1125 480 Intake: Oral 840 480 Output: Urine 500 1125 Other: # Voids 1 1 Laboratory Last Values WBC 7.2 10^3/ul (3.5-10.8) 09/22/18 05:21 RBC 3.97 10^6/ul (4.00-5.40) L 09/22/18 05:21 Hgb 13.0 g/dl (14.0-18.0) L 09/22/18 05:21 Hct 38 % (42-52) L 09/22/18 05:21 MCV 97 fL (80-94) H 09/22/18 05:21 MCH 33 pg (27-31) H 09/22/18 05:21 MCHC 34 g/dl (31-36) 09/22/18 05:21 RDW 13 % (10.5-15) 09/22/18 05:21 Plt Count 172 10^3/ul (150-450) 09/22/18 05:21 MPV 7.5 fL (7.4-10.4) 09/22/18 05:21 Neut % (Auto) 65.9 % 09/22/18 05:21 Lymph % (Auto) 19.6 % 09/22/18 05:21 [place] % (Auto) 12.5 % 09/22/18 05:21 Eos % (Auto) 1.5 % 09/22/18 05:21 Baso % (Auto) 0.5 % 09/22/18 05:21 Absolute Neuts (auto) 4.7 10^3/ul (1.5-7.7) 09/22/18 05:21 Absolute Lymphs (auto) 1.4 10^3/ul (1.0-4.8) 09/22/18 05:21 Absolute Monos (auto) 0.9 10^3/ul (0-0.8) H 09/22/18 05:21 Absolute Eos (auto) 0.1 10^3/ul (0-0.6) 09/22/18 05:21 Absolute Basos (auto) 0 10^3/ul (0-0.2) 09/22/18 05:21 Absolute Nucleated RBC 0 10^3/ul 09/22/18 05:21 Nucleated RBC % 0 09/22/18 05:21 Sodium 137 mmol/L (135-145) 09/22/18 05:21 Potassium 4.5 mmol/L (3.5-5.0) 09/22/18 05:21 Chloride 103 mmol/L (101-111) 09/22/18 05:21 Carbon Dioxide 31 mmol/L (22-32) 09/22/18 05:21 Anion Gap 3 mmol/L (2-11) 09/22/18 05:21 BUN 20 mg/dL (6-24) 09/22/18 05:21 Creatinine 0.82 mg/dL (0.67-1.17) 09/22/18 05:21 Est GFR ( Amer) 110.8 (>60) 09/22/18 05:21 Est GFR (Non-Af Amer) 91.6 (>60) 09/22/18 05:21 BUN/Creatinine Ratio 24.4 (8-20) H 09/22/18 05:21 Glucose 139 mg/dL (70-100) H 09/22/18 05:21 Calcium 9.1 mg/dL (8.6-10.3) 09/22/18 05:21 Total Bilirubin 1.00 mg/dL (0.2-1.0) 09/22/18 05:21 AST 11 U/L (13-39) L 09/22/18 05:21 ALT 7 U/L (7-52) 09/22/18 05:21 Alkaline Phosphatase 49 U/L (34-104) 09/22/18 05:21 Total Protein 6.0 g/dL (6.4-8.9) L 09/22/18 05:21 Albumin 3.2 g/dL (3.2-5.2) 09/22/18 05:21 Globulin 2.8 g/dL (2-4) 09/22/18 05:21 Albumin/Globulin Ratio 1.1 (1-3) 09/22/18 05:21 Urine Color Yellow 09/21/18 17:29 Urine Appearance Clear 09/21/18 17:29 Urine pH 6.0 (5-9) 09/21/18 17:29 Ur Specific [place] 1.024 (1.010-1.030) 09/21/18 17:29 Urine Protein Negative (Negative) 09/21/18 17:29 Urine Ketones Negative (Negative) 09/21/18 17:29 Urine Blood 2+ (Negative) A 09/21/18 17:29 Urine Nitrate Negative (Negative) 09/21/18 17:29 Urine Bilirubin Negative (Negative) 09/21/18 17:29 Urine Urobilinogen Positive (Negative) A 09/21/18 17:29 Ur Leukocyte Esterase Negative (Negative) 09/21/18 17:29 Urine WBC (Auto) Absent (Absent) 09/21/18 17:29 Urine RBC (Auto) 3+(>10/hpf) (Absent) A 09/21/18 17:29 Ur Squamous Epith Cells Present (Absent) A 09/21/18 17:29 Urine Bacteria Absent (Absent) 09/21/18 17:29 Urine Glucose Negative (Negative) 09/21/18 17:29
--- NOTE | 2018-09-25 13:06 | DS ---
CC: Dr. Carmine Hooper.* DISCHARGE SUMMARY: DATE OF ADMISSION: 09/14/18 DATE OF DISCHARGE: 09/24/18 DISCHARGE DIAGNOSES: 1. Right ankle fracture. 2. Atrial fibrillation. 3. Tachybrady syndrome, status post pacemaker placement. 4. Congestive heart failure. 5. Depression. 6. Hearing loss with cochlear implants. 7. Benign prostatic hypertrophy. 8. Diabetes mellitus. 9. Hematuria. HISTORY OF ILLNESS AND HOSPITAL COURSE: For complete history of the events leading up to his rehab stay, please see the history and physical dictated by Dr. Abbey Gardner on 09/14/18. While on the rehab unit, the patient did develop an episode of hematuria. I spoke with his urology team who recommended doing an ultrasound of his kidneys and his bladder. That test was unrevealing. His hemoglobin and hematocrit remained stable. The bleeding stopped on its own. He will need a cystoscopy as an outpatient. The patient was on Xarelto for his atrial fibrillation while on the rehab unit as well as an increased dose of his beta brenda. He remained on Celexa and Klonopin for his depression and anxiety. He was otherwise medically stable. The patient was seen by both Physical and Occupational Therapy and made good gains with both disciplines. With physical therapy at the time of admission, the patient required min assist of 2 people to do a transfer. He was able to hop 3 feet with min assist. With occupational therapy at the time of admission, the patient required supervision for upper body dressing, total assistance for lower body dressing, max assist of 2 people for toileting, min assist of 2 people for toilet transfer. The patient at the time of discharge required supervision for toilet transfers. He was min assist for toileting and mod assist to max assist for lower body dressing. He was set up for upper body dressing. With physical therapy, he was supervision for transfers, supervision for hopping 10 feet. Orthopedics came in followup prior to discharge. The patient's stitches were removed and a cast was applied to his right ankle. The patient's came in for family training prior to discharge. The patient was discharged home with his on 09/24/18. DISCHARGE DIET: Regular. DISCHARGE MEDICATIONS: 1. Celexa 20 mg daily. 2. Klonopin 0.5 mg at 9 a.m. and then 1 mg twice daily. 3. Lisinopril 5 mg daily. 4. Toprol-XL 50 mg twice daily. 5. MiraLAX 17 g every day as directed. 6. Xarelto 20 mg daily. 7. Flomax 0.4 mg daily. 8. Proscar 5 mg daily. 9. Demadex 10 mg every day as needed. SERVICES AFTER DISCHARGE: Through visiting nurse service. He will have home nursing, home physical therapy, home occupational therapy, and a home health aide. Followup with Dr. Landa in 3 weeks. He will also follow up with his primary care doctor, Dr. Carmine Hooper. [id number]/[facility] #: [id number] MTDD
== END 2018-09-24 14:10 | disposition home health service (06) | DRG 560 ==
LOC: PMRU 11:01
PROVIDERS: ADMIT Physical Medicine & Rehabilitation; ATTEND Physical Medicine & Rehabilitation
PROC: F07Z5ZZ Bed Mobility Treatment (ICD-10-PCS; 2018-09-14)
PROC: F07Z9ZZ Gait Training/Functional Ambulation Treatment (ICD-10-PCS; 2018-09-14)
PROC: F07Z8ZZ Transfer Training Treatment (ICD-10-PCS; 2018-09-14)
PROC: F07Z4ZZ Wheelchair Mobility Treatment (ICD-10-PCS; 2018-09-14)
PROC: F08Z0ZZ Bathing/Showering Techniques Treatment (ICD-10-PCS; 2018-09-14)
PROC: F08Z1ZZ Dressing Techniques Treatment (ICD-10-PCS; 2018-09-14)
PROC: F08Z3ZZ Feeding/Eating Treatment (ICD-10-PCS; 2018-09-14)
PROC: 2W3QX2Z Immobilization of Right Lower Leg using Cast (ICD-10-PCS; principal; 2018-09-24)
DX: S82.891D Other fracture of right lower leg, subsequent encounter for closed fracture with routine healing (principal); I42.9 Cardiomyopathy, unspecified; I48.92 Unspecified atrial flutter; W01.0XXD Fall on same level from slipping, tripping and stumbling without subsequent striking against object, subsequent encounter; I48.0 Paroxysmal atrial fibrillation; I49.5 Sick sinus syndrome; I50.9 Heart failure, unspecified; I71.2 Thoracic aortic aneurysm, without rupture; E66.01 Morbid (severe) obesity due to excess calories; E11.9 Type 2 diabetes mellitus without complications; R31.9 Hematuria, unspecified; F32.9 Major depressive disorder, single episode, unspecified; H91.8X9 Other specified hearing loss, unspecified ear; N40.0 Benign prostatic hyperplasia without lower urinary tract symptoms; G47.33 Obstructive sleep apnea (adult) (pediatric); I49.3 Ventricular premature depolarization; R25.1 Tremor, unspecified; F41.9 Anxiety disorder, unspecified; K59.00 Constipation, unspecified; Z68.37 Body mass index [BMI] 37.0-37.9, adult; Z95.0 Presence of cardiac pacemaker; Z79.01 Long term (current) use of anticoagulants; Z79.1 Long term (current) use of non-steroidal anti-inflammatories (NSAID); Z79.899 Other long term (current) drug therapy; Z82.5 Family history of asthma and other chronic lower respiratory diseases; Z87.891 Personal history of nicotine dependence
CPT/HCPCS: 36415; 76770; 80053; 81003; 81015; 85025; A9270-GY

== ENCOUNTER 2022-03-23 10:11 | Inpatient (IN) ==
[2022-03-23 11:07] LABS: ABS Lymphocytes 0.9 10^3/ul (1.0-4.8); ABS Monocytes 0.9 10^3/ul (0-0.8); ABS Neutrophils 5.9 10^3/ul (1.5-7.7); Eosinophil % 0.3 %; Hematocrit 39 % (42-52); Hemoglobin 13.3 g/dL (14.0-18.0); Lymphocyte % 11.9 %; Mean Corpuscular HGB Conc 34 g/dL (31-36); Mean Corpuscular Hemoglobin 33 pg (27-31); Mean Corpuscular Volume 95 fL (80-94); Mean Platelet Volume 7.7 fL (7.4-10.4); Nucleated Red Blood Cells % 0.1; Platelet Count 181 10^3/uL (150-450); Red Blood Count 4.07 10^6 /uL (4.18-5.48); Red Cell Distribution Width 14 % (10-15); White Blood Count 7.9 10^3/uL (3.5-10.8)
[2022-03-23 11:23] LABS: INR 1.92 (0.89-1.11)
[2022-03-23 12:17] LABS: Albumin 3.5 g/dL (3.2-5.2); Albumin/Globulin Ratio 1.4 (1-3); Calcium 9.1 mg/dL (8.6-10.3); Globulin 2.5 g/dL (2-4); Potassium 4.8 mmol/L (3.5-5.0); Total Bilirubin 1.4 mg/dL (0.2-1.0); eGFR CKD-EPI 87.2 (>60)
[2022-03-23 12:28] LABS: High Sensitivity Troponin 1 Hr 4251 pg/mL (<20)
[2022-03-23] MEDS ORDERED: Iodixanol (CONTRAST) 320 MG/ML 100 ML SDV IV ONE (13:18)
[2022-03-23] MEDS ORDERED: Perflutren Lipid Microsphere 3 ML VIAL ONE (13:30)
[2022-03-23] MEDS ORDERED: Heparin DRIP 25,000 UNITS BAG 25,000 UNITS/500 ML BAG IV SCH (14:30)
[2022-03-23] MEDS ORDERED: Furosemide 20 mg/2 ml IV VIAL IV ONE (16:13)
[2022-03-23 16:43] LABS: HDL Cholesterol 44.2 mg/dL; Magnesium 1.8 mg/dL (1.9-2.7)
[2022-03-23] MEDS ORDERED: Dextrose 50% Syringe 50 ml 25 GM/50 ML SYRINGE IV PUSH PRN (18:23)
[2022-03-23] MEDS ORDERED: Magnesium Sulfate 2 gm BAG 2 GM/50 ML BAG IVPB ONE (21:15)
[2022-03-23] MEDS: Triamcinolone 0.025% OINT 15 GM TUBE TOPICAL SCH (21:52)
[2022-03-24 08:19] LABS: ABS Lymphocytes 0.9 10^3/ul (1.0-4.8); ABS Monocytes 0.9 10^3/ul (0-0.8); ABS Neutrophils 5.1 10^3/ul (1.5-7.7); Eosinophil % 0.6 %; Hematocrit 39 % (42-52); Lymphocyte % 12.4 %; Mean Corpuscular HGB Conc 33 g/dL (31-36); Mean Corpuscular Hemoglobin 33 pg (27-31); Mean Corpuscular Volume 98 fL (80-94); Mean Platelet Volume 7.9 fL (7.4-10.4); Nucleated Red Blood Cells % 0.1; Platelet Count 170 10^3/uL (150-450); Red Blood Count 4.02 10^6 /uL (4.18-5.48); Red Cell Distribution Width 14 % (10-15)
[2022-03-24 08:33] LABS: Activated Partial Thrombo Time 53.5 seconds (26.0-38.0); INR 1.39 (0.89-1.11)
[2022-03-24 08:44] LABS: Albumin 3.3 g/dL (3.2-5.2); Albumin/Globulin Ratio 1.4 (1-3); Calcium 8.9 mg/dL (8.6-10.3); Globulin 2.4 g/dL (2-4); Potassium 4.2 mmol/L (3.5-5.0); Total Bilirubin 1.3 mg/dL (0.2-1.0); Total Protein 5.7 g/dL (6.4-8.9); eGFR CKD-EPI 87.8 (>60)
[2022-03-24] MEDS ORDERED: MAGNESIUM OXIDE 250 MG PO SCH (09:00)
[2022-03-24] MEDS ORDERED: MAGNESIUM PO SCH (09:00)
[2022-03-24] MEDS ORDERED: Aspirin EC 81 mg TAB.EC (enteric coated) PO SCH (09:00)
[2022-03-24] MEDS ORDERED: Heparin 2 UNITS/ML 1000 mls 2,000 ML IV ONE (09:52)
[2022-03-24] MEDS ORDERED: fentaNYL 100 mcg/2 ml 50 MCG/ML VIAL ONE (09:55)
[2022-03-24] MEDS ORDERED: Heparin 1,000 UNIT/ML 10 ml (10,000 UNITS) CATHLAB/DIALYSIS ONE ×2 (09:55→11:01)
[2022-03-24] MEDS ORDERED: Midazolam 5 mg/5 ml VIAL 1 mg/ml 5 ml VIAL (5 mg) ONE (09:55)
[2022-03-24] MEDS ORDERED: Lidocaine 1% MPF 5 ML VIAL ONE (09:55)
[2022-03-24] MEDS ORDERED: Iohexol 350 (CONTRAST) 100 ML PAK IV ONE ×3 (09:55→11:44)
[2022-03-24] MEDS ORDERED: nitroGLYCERIN DRIP 25,000 MCG/250 ML BTL ONE (09:55)
[2022-03-24] MEDS ORDERED: niCARdipine 0.1MG/ML IVPREMIX 20 MG/200 ML BAG IV ONE (09:57)
[2022-03-24] MEDS: Triamcinolone 0.025% OINT 15 GM TUBE TOPICAL SCH ×2 (11:29→20:32)
[2022-03-24] MEDS: DAPAGLIFLOZIN 5 MG TAB (NF) PO SCH (11:30)
[2022-03-24] MEDS ORDERED: Ondansetron 4 mg VIAL 2 MG/ML 2 ml VIAL IV PRN (11:53)
[2022-03-25 05:13] LABS: ABS Lymphocytes 0.9 10^3/ul (1.0-4.8); ABS Neutrophils 6.4 10^3/ul (1.5-7.7); Eosinophil % 0.4 %; Hematocrit 36 % (42-52); Hemoglobin 12.7 g/dL (14.0-18.0); Lymphocyte % 11.1 %; Mean Corpuscular HGB Conc 35 g/dL (31-36); Mean Corpuscular Hemoglobin 33 pg (27-31); Mean Corpuscular Volume 94 fL (80-94); Mean Platelet Volume 7.9 fL (7.4-10.4); Platelet Count 184 10^3/uL (150-450); Red Blood Count 3.86 10^6 /uL (4.18-5.48); Red Cell Distribution Width 14 % (10-15); White Blood Count 8.4 10^3/uL (3.5-10.8)
[2022-03-25 05:41] LABS: eGFR CKD-EPI 88.7 (>60)
[2022-03-25 07:56] LABS: Calcium 8.8 mg/dL (8.6-10.3); Magnesium 1.9 mg/dL (1.9-2.7); Potassium 4.2 mmol/L (3.5-5.0)
[2022-03-25] MEDS: Triamcinolone 0.025% OINT 15 GM TUBE TOPICAL SCH (09:00)
[2022-03-25] MEDS: DAPAGLIFLOZIN 5 MG TAB (NF) PO SCH ×2 (09:00→09:03)
[2022-03-25 12:55] VITALS: BP 113/71
[2022-03-26] MEDS ORDERED: DAPAGLIFLOZIN 5 MG TAB (NF) PO SCH (09:00)
== END 2022-03-25 15:55 | disposition home or self-care (01) | DRG 246 ==
LOC: ED 10:11 → EDHOLD 10:11 → SUATTDRO 13:18 → MEDTELE 17:50 → ICU 03-24 13:12
PROVIDERS: ADMIT Internal Medicine; ATTEND Internal Medicine